=== PATIENT | male | born 1960 | race Caucasian/White ===

== ENCOUNTER 2017-01-27 04:45 | Inpatient (IN) | payer BC, OTHER ==
[2017-01-27] MEDS ORDERED: morphine CARPU-JECT 2 MG/1 ML DISP.SYRIN IVPUSH ONE (06:22)
[2017-01-27] MEDS ORDERED: SODIUM CHLORIDE 1,000 ML IV STA ×2 (06:22→10:02)
[2017-01-27 06:34] VITALS: BMI 33.0
--- NOTE | 2017-01-27 06:41 | PDOC ---
History of Present Illness - General Stated Complaint: ABD PAIN Time Seen by Provider: 01/27/17 06:07 History Source: Patient Exam Limitations: No Limitations - History of Present Illness Travel History: No Initial Comments: 01/27/17 06:28 56yo Male patient presents to ED c/o mid abdominal pain. Patient states he developed an abdominal hernia a couple months ago. Patient had abdominal surgery 9 yrs ago for perforated bowel. He states 3 days ago symptoms worsened, while driving home from work this morning he developed severe pain 03/21. Patient denies n/v/d, fever, rectal bleeding, dysuria, hematuria, or any other complaints at this time. PCP- None. Timing/Duration: reports: getting worse Quality: reports: moderate Abdominal Pain Onset Location: reports: periumbilical Pain Radiation: reports: back Activities at Onset: reports: exertion Treatment Prior to Arrive: worse with: analgesics, antacids, cold pack, heat, laxative, enema, other Aggravating Factors: worse with: None, Defecation, Eating, Emotional upset, Exertion, [place], Movement, Voiding, Change in position ED Treatment Course - RADIOLOGY Radiology Studies Ordered: Category Date Time Status ABDOMEN & PELVIS CT W/O CONTR [CT] Stat CT Scan 01/27/17 06:23 Ordered
[2017-01-27] MEDS ORDERED: morphine CARPU-JECT 2 MG/1 ML DISP.SYRIN ONE (07:22)
--- NOTE | 2017-01-27 08:03 | PDOC ---
*Physical Exam - Vital Signs Last Vital Signs Temp Pulse Resp BP Pulse Ox 97.6 F 79 14 156/89 99 01/27/17 06:32 01/27/17 06:32 01/27/17 06:32 01/27/17 06:32 01/27/17 06:32 - Physical Exam General Appearance: Yes: Appropriately Dressed. No: Apparent Distress HEENT: positive: Normal Voice Neck: positive: Supple Respiratory/Chest: negative: Respiratory Distress Gastrointestinal/Abdominal: positive: Normal Bowel Sounds, Tender (RUQ w/ ? small reducible hernia to R mid abd), Soft. negative: Distended, Guarding, Rebound Musculoskeletal: negative: CVA Tenderness Integumentary: positive: Dry, Warm Neurologic: positive: Fully Oriented, Alert, Normal Mood/Affect ED Treatment Course - LABORATORY CBC & Chemistry Diagram: 01/27/17 07:55 01/27/17 07:55 - Medications Given in the ED: ED Medications Discontinued Medications Generic Name Dose Route Start Last Admin Trade Name Freq PRN Reason Stop Dose Admin Sodium Chloride 1,000 mls @ 1,000 mls/hr 01/27/17 06:22 01/27/17 07:25 Normal Saline - IV 01/27/17 07:21 1,000 mls/hr ASDIR STA Administration Morphine Sulfate 2 mg 01/27/17 06:22 01/27/17 07:25 Morphine Injection - IVPUSH 01/27/17 06:23 2 mg ONCE ONE Administration Medical Decision Making - Medical Decision Making 01/27/17 08:01 Received signout at 7am Patient is a 56-year-old male status post surgery for perforated bowel remotely , ?ventral hernia to RUQ, p/w RUQ pain x several days. No associated symptoms. As per prior team, patient appears to have a ? reducible hernia to R mid abd. Pain presently controlled with meds. Labs and CT pending 01/27/17 08:09 01/27/17 08:[address] as neg for s/o obstruction w/ multiple fat containing hernias , including R paramedian epigastric hernia. Distended gallbladder with haziness to pericholecystic fat is seen, consider cholecystitis. Labs still pending. Will get ultrasound at this point to confirm cecy. Pt requesting pain meds at this time 01/27/17 08:23 01/27/17 09:52 Acute cecy on US w/ multiple gallstones and over distended GB w/ wall edema, no pericholecysticc fluid. Wbc of 15, LFTs wnl. Will order pre-op labs, abx and c/w surgery 01/27/17 09:57 01/27/17 10:31 01/27/17 10:43 Case d/w surgery and pt admitted to hospitalist *DC/Admit/Observation/Transfer Diagnosis at time of Disposition: Acute cholecystitis - Discharge Dispostion Condition at time of disposition: Fair Admit: Yes
[2017-01-27] MEDS ORDERED: ONDANSETRON 4 MG/2 ML VIAL IVPUSH ONE (08:23)
[2017-01-27] MEDS ORDERED: morphine CARPU-JECT 4 MG/1 ML DISP.SYRIN IVPUSH ONE (08:23)
[2017-01-27 08:28] LABS: BASOPHIL 0.5 % (0-2.0); EOSINOPHIL 0.3 % (0-4.5); MCH 30.9 pg (25.7-33.7); MCHC 34.5 g/dl (32.0-35.9); MEAN CELL VOLUME 89.6 fl (80-96); MEAN PLT VOLUME 8.7 fl (7.5-11.1); NEUTROPHILS 82.1 % (42.8-82.8); PLATELET COUNT 271 K/MM3 (134-434); RDW 12.5 % (11.9-15.9); WHITE BLOOD COUNT 15.6 K/mm3 (4.0-10.0)
[2017-01-27] MEDS ORDERED: morphine CARPU-JECT 4 MG/1 ML DISP.SYRIN ONE (08:29)
[2017-01-27] MEDS ORDERED: ONDANSETRON 4 MG/2 ML VIAL ONE ×2 (08:29→15:17)
[2017-01-27 08:38] LABS: AMYLASE 37 U/L (25-115); ANION GAP 7 (8-16); CALCIUM 9.5 mg/dL (8.5-10.1); CO2 31 mmol/L (21-32); GLUCOSE,RANDOM 137 mg/dL (74-106); SGOT/AST 20 U/L (15-37); SGPT/ALT 30 U/L (12-78)
[2017-01-27 08:40] LABS: ALK PHOS 89 U/L (45-117); BILIRUBIN,TOTAL 0.6 mg/dL (0.2-1.0); CREATININE 0.7 mg/dL (0.7-1.3); TOT PROT 7.8 g/dl (6.4-8.2)
[2017-01-27] MEDS ORDERED: HYDROmorphone HCL CARPU-JECT 2 MG/1 ML DISP.SYRIN IVPUSH ONE (09:18)
[2017-01-27] MEDS ORDERED: HYDROmorphone HCL CARPU-JECT 2 MG/1 ML DISP.SYRIN ONE ×3 (09:26→12:58)
[2017-01-27] MEDS ORDERED: CEFAZOLIN 1 GM in DEXTROSE 5%-WATER - 50 ML IVPB ONE (09:57)
[2017-01-27] MEDS ORDERED: HYDROmorphone HCL CARPU-JECT 2 MG/1 ML DISP.SYRIN IVPB ONE ×2 (10:02→12:52)
[2017-01-27 10:08] LABS: URINE APPEARANCE CLEAR; URINE BILIRUBIN NEGATIVE (NEGATIVE); URINE BLOOD NEGATIVE (NEGATIVE); URINE COLOR LTYELLOW; URINE GLUCOSE (UA) NEGATIVE (NEGATIVE); URINE KETONE NEGATIVE (NEGATIVE); URINE LEUK ESTERASE NEGATIVE (NEGATIVE); URINE NITRITE NEGATIVE (NEGATIVE); URINE PROTEIN NEGATIVE (NEGATIVE); URINE UROBILINOGEN 2.0 E.U/dl E.U./dl (0.2-1.0)
[2017-01-27] MEDS ORDERED: CEFAZOLIN (PRE-DOCKED) 50 ML IVPB ONE (10:38)
[2017-01-27] MEDS ORDERED: HYDROmorphone HCL CARPU-JECT 1 MG/1 ML DISP.SYRIN IVPUSH PRN (11:12)
[2017-01-27] MEDS ORDERED: DEXTROSE 5%-0.45% SALINE 1,000 ML IV SCH (11:15)
[2017-01-27 11:53] LABS: MAGNESIUM 2.1 mg/dL (1.8-2.4)
[2017-01-27 11:54] LABS: INR 1.15 (0.82-1.09); PROTHROMBIN TIME (PATIENT) 12.7 SEC (9.98-11.88)
[2017-01-27 11:54] LABS: TROPONIN I < 0.02 ng/ml (0.00-0.05)
--- NOTE | 2017-01-27 13:49 | HP ---
CHIEF COMPLAINT: abd pain PCP: does not have one HISTORY OF PRESENT ILLNESS: 56yo Male patient presents to ED c/o mid abdominal pain. Patient states he developed an abdominal hernia a couple months ago. Patient had abdominal surgery 9 yrs ago for perforated bowel. He states 3 days ago symptoms worsened, while driving home from work this morning he developed severe pain 8/10. Patient denies n/v/d, fever, rectal bleeding, dysuria, hematuria, or any other complaints at this time. ER course was notable for: (1) cholecystsis findings on CT and US, treat with ABT (2) surgical consult with NPO status after MN (3) Recent Travel: none PAST MEDICAL HISTORY: denies PAST SURGICAL HISTORY: denies Social History: Smoking: Alcohol: Drugs: lives with and children Family History: Allergies No Known Allergies Allergy (Verified 01/27/17 06:32) HOME MEDICATIONS: Home Medications Medication Instructions Recorded NK [No Known Home Medication] 01/27/17 REVIEW OF SYSTEMS CONSTITUTIONAL: Absent: fever, chills, diaphoresis, generalized weakness, malaise, loss of appetite, weight change HEENT: Absent: rhinorrhea, nasal congestion, throat pain, throat swelling, difficulty swallowing, mouth swelling, ear pain, eye pain, visual changes CARDIOVASCULAR: Absent: chest pain, syncope, palpitations, irregular heart rate, lightheadedness , peripheral edema RESPIRATORY: Absent: cough, shortness of breath, dyspnea with exertion, orthopnea, wheezing, stridor, hemoptysis GASTROINTESTINAL: Absent: (+) abdominal pain, abdominal distension,(+) nausea, vomiting, diarrhea , constipation, melena, hematochezia GENITOURINARY: Absent: dysuria, frequency, urgency, hesitancy, hematuria, flank pain, genital pain MUSCULOSKELETAL: Absent: myalgia, arthralgia, joint swelling, back pain, neck pain SKIN: Absent: rash, itching, pallor HEMATOLOGIC/IMMUNOLOGIC: Absent: easy bleeding, easy bruising, lymphadenopathy, frequent infections ENDOCRINE: Absent: unexplained weight gain, unexplained weight loss, heat intolerance, cold intolerance NEUROLOGIC: Absent: headache, focal weakness or paresthesias, dizziness, unsteady gait, seizure, mental status changes, bladder or bowel incontinence PSYCHIATRIC: Absent: anxiety, depression, suicidal or homicidal ideation, hallucinations. PHYSICAL EXAMINATION Vital Signs - 24 hr 01/27/17 12:30 Temperature 98.0 F Pulse Rate [ 76 Right] Respiratory 18 Rate Blood Pressure 139/68 [Right Arm] O2 Sat by Pulse 97 Oximetry (%) GENERAL: Awake, alert, and fully oriented, in no acute distress. HEAD: Normal with no signs of trauma. EYES: Pupils equal, round and reactive to light, extraocular movements intact, sclera anicteric, conjunctiva clear. No lid lag. EARS, NOSE, THROAT: Ears normal, nares patent, oropharynx clear without exudates. Moist mucous membranes. NECK: Normal range of motion, supple without lymphadenopathy, JVD, or masses. LUNGS: Breath sounds equal, clear to auscultation bilaterally. No wheezes, and no crackles. No accessory muscle use. HEART: Regular rate and rhythm, normal S1 and S2 without murmur, rub or gallop. ABDOMEN: Soft, (+) mid to right side abdominal tender, not distended, normoactive bowel sounds, no guarding, no rebound, no masses. No hepatomegaly or splenomegaly. MUSCULOSKELETAL: Normal range of motion at all joints. No bony deformities or tenderness. No CVA tenderness. UPPER EXTREMITIES: 2+ pulses, warm, well-perfused. No cyanosis. No clubbing. No peripheral edema. LOWER EXTREMITIES: 2+ pulses, warm, well-perfused. No calf tenderness. No peripheral edema. NEUROLOGICAL: Cranial nerves II-XII intact. Normal speech. Normal gait. PSYCHIATRIC: Cooperative. Good eye contact. Appropriate mood and affect. SKIN: Warm, dry, normal turgor, no rashes or lesions noted, normal capillary refill. Laboratory Results - last 24 hr 01/27/17 01/27/17 01/27/17 11:14 11:27 11:27 INR 1.15 H PTT (Actin FS) Lipase 51 L Blood Type O POSITIVE Antibody Screen Negative 01/27/17 11:50 INR PTT (Actin FS) 33.3 Lipase Blood Type Antibody Screen ASSESSMENT/PLAN: This 56 yr old male with c/o right upper quad pain with a finding dx of cholecystitis 1. Cholecystitis -ABT -pain management -IVF -consult with Dr. Jw shelby prn -NPO after MN Visit type - Emergency Visit Emergency Visit: Yes ED Registration Date: 01/27/17 Care time: The patient presented to the Emergency Department on the above date and was hospitalized for further evaluation of their emergent condition. - New Patient This patient is new to me today: Yes Date on this admission: 01/27/17 - Critical Care Critical Care patient: No
[2017-01-27] MEDS: ONDANSETRON 4 MG/2 ML VIAL IVPB PRN (15:18)
[2017-01-27] MEDS: HEPARIN NA (PORCINE) 5,000 UNITS/ML 1ML VIAL SQ SCH ×2 (16:00→21:52)
[2017-01-27] MEDS ORDERED: HYDROmorphone HCL CARPU-JECT 1 MG/1 ML DISP.SYRIN ONE ×2 (16:15→21:33)
[2017-01-27] MEDS ORDERED: PIPERACILLIN/TAZOB 3.375 GM/50 ML PRE-DOCKED IVPB SCH (18:00)
[2017-01-27] MEDS ORDERED: CEFTRIAXONE 2 GM in DEXTROSE 5%-WATER - 100 ML IVPB SCH (19:00)
[2017-01-27] MEDS ORDERED: cefTRIAXone 2 GM/100 ML BAG (PRE-DOCKED) IVPB SCH (19:15)
[2017-01-27] MEDS ORDERED: HYDROmorphone HCL CARPU-JECT 2 MG/1 ML DISP.SYRIN IVPB PRN (19:24)
[2017-01-27] MEDS ORDERED: HEPARIN NA (PORCINE) 5,000 UNITS/ML 1ML VIAL ONE (21:34)
[2017-01-27] MEDS ORDERED: METRONIDAZOLE 500 MG PREMIXED 100 ML IVPB ONE (21:34)
[2017-01-27] MEDS ORDERED: CEFTRIAXONE 100 ML IVPB ONE (21:34)
[2017-01-27] MEDS: HYDROmorphone HCL CARPU-JECT 1 MG/1 ML DISP.SYRIN IVPUSH PRN (21:52)
[2017-01-27] MEDS: METRONIDAZOLE 500 MG PREMIXED 100 ML IVPB SCH (21:52)
--- NOTE | 2017-01-27 22:03 | CONSULT ---
- Consultation REQUESTING PROVIDER: DON Rangel CONSULT REQUEST: We have been asked to surgically evaluate this patient for ( specify). PCP:Martin Loja HISTORY OF PRESENT ILLNESS:56 y/o male presented to the ER w/abdominal pain and nausea and vomiting; he has a known incisional hernia from previous surgery( blunt trauma to the abdomen w/bowel resection 9 years ago); w/u in the ER revealed acute cholecystitis; he denies dark urine; light stools; no other GI c/ o. PMHx: none PSHx: as above Home Medications Medication Instructions Recorded NK [No Known Home Medication] 01/27/17 Allergies Allergy/AdvReac Type Severity Reaction Status Date / Time No Known Allergies Allergy Verified 01/27/17 06:32 REVIEW OF SYSTEMS: CONSTITUTIONAL: Present: fever, chills, diaphoresis, generalized weakness, malaise, loss of appetite. CARDIOVASCULAR: Absent: chest pain, syncope, palpitations, irregular heart rate, lightheadedness , peripheral edema RESPIRATORY: Absent: cough, shortness of breath, dyspnea with exertion, wheezing, stridor, hemoptysis GASTROINTESTINAL: Present: abdominal pain, abdominal distension, nausea, vomiting, GENITOURINARY: Absent: dysuria, frequency, urgency, hesitancy, hematuria, flank pain, genital pain MUSCULOSKELETAL: Absent: myalgia, arthralgia, joint swelling, back pain, neck pain SKIN: Absent: rash, itching, pallor HEMATOLOGIC/IMMUNOLOGIC: Absent: easy bleeding, easy bruising, lymphadenopathy NEUROLOGIC: Absent: headache, focal weakness, paresthesias, dizziness, unsteady gait, seizure, mental status changes, bladder or bowel incontinence PSYCHIATRIC: Absent: anxiety, depression, suicidal or homicidal ideation, hallucinations. PHYSICAL EXAM: GENERAL: Awake, alert, and fully oriented, in no acute distress. HEAD: Normal with no signs of trauma. EYES: PERRL, sclera anicteric, conjunctiva clear. NECK: Normal ROM, supple without lymphadenopathy, JVD, or masses. LUNGS: Clear to auscultation bilat anteriorly. No wheezes, and no crackles. No accessory muscle use. HEART: Regular rate and rhythm. No murmurs ABDOMEN: Mildline incision scar w/ ?? incisional hernia that is reducible;Soft, tender RUQ; not distended, normoactive bowel sounds, no guarding, no rebound, no masses. No organomegaly. MUSCULOSKELETAL: Normal ROM at all joints. No bony deformities or tenderness. No CVA tenderness. UPPER EXTREMITIES: 2+ pulses, warm, well-perfused. No cyanosis. Cap refill <2 seconds. No peripheral edema. LOWER EXTREMITIES: 2+ pulses, warm, well-perfused. No calf tenderness. No peripheral edema. NEUROLOGICAL: Normal speech, gait not observed. PSYCH: Cooperative. Good eye contact. Appropriate mood and affect. SKIN: Warm, dry, normal turgor, no rashes or lesions noted. Vital Signs Temperature 98.5 F 01/27/17 19:22 Pulse Rate 89 01/27/17 19:22 Respiratory Rate 18 01/27/17 19:22 Blood Pressure 149/70 01/27/17 19:22 O2 Sat by Pulse Oximetry (%) 97 01/27/17 19:22 Lab Results WBC 15.6 K/mm3 (4.0-10.0) H 01/27/17 07:55 RBC 4.36 M/mm3 (4.00-5.60) 01/27/17 07:55 Hgb 13.5 GM/dL (11.7-16.9) 01/27/17 07:55 Hct 39.0 % (35.4-49) 01/27/17 07:55 MCV 89.6 fl (80-96) 01/27/17 07:55 MCHC 34.5 g/dl (32.0-35.9) 01/27/17 07:55 RDW 12.5 % (11.9-15.9) 01/27/17 07:55 Plt Count 271 K/MM3 (134-434) 01/27/17 07:55 Sodium 138 mmol/L (136-145) 01/27/17 07:55 Potassium 4.3 mmol/L (3.5-5.1) 01/27/17 07:55 Chloride 100 mmol/L (98-107) 01/27/17 07:55 Carbon Dioxide 31 mmol/L (21-32) 01/27/17 07:55 Anion Gap 7 (8-16) L 01/27/17 07:55 BUN 21 mg/dL (7-18) H 01/27/17 07:55 Creatinine 0.7 mg/dL (0.7-1.3) 01/27/17 07:55 Random Glucose 137 mg/dL (74-106) H 01/27/17 07:55 Calcium 9.5 mg/dL (8.5-10.1) 01/27/17 07:55 Blood Type O POSITIVE 01/27/17 11:27 Antibody Screen Negative 01/27/17 11:27 INR 1.15 (0.82-1.09) H 01/27/17 11:27 CT/US reviewed; ;abs reviewed IMP: acute cholecystitis/cholelithiasis; h/o previous abdominal surgery due to blunt trauma and incisional hernias. PLAN: admit/npo/ivf/ivabs/lap cecy possible open; d/w pt.r/b/a/'s to surgery; he wishes to proceed; succes for lap cecy based on findings at beginning of surgery; hernia(s) willl need to be addressed at a later date. Nabil Escalera MD FACS Visit type - Case Type Case Type: ED Admission - Emergency Emergency Visit: Yes ED Registration Date: 01/27/17 Care time: The patient presented to the Emergency Department on the above date and was hospitalized for further evaluation of their emergent condition. - New patient This patient is new to me today: Yes Date on this admission: 01/27/17 - Critical Care Critical Care patient: No
[2017-01-28] MEDS ORDERED: HYDROmorphone HCL CARPU-JECT 1 MG/1 ML DISP.SYRIN ONE ×2 (01:45→06:16)
[2017-01-28] MEDS ORDERED: METRONIDAZOLE 500 MG PREMIXED 100 ML IVPB ONE ×2 (01:45→16:57)
[2017-01-28] MEDS: HYDROmorphone HCL CARPU-JECT 1 MG/1 ML DISP.SYRIN IVPUSH PRN ×3 (01:55→11:37)
[2017-01-28] MEDS: METRONIDAZOLE 500 MG PREMIXED 100 ML IVPB SCH ×3 (02:11→22:17)
[2017-01-28] MEDS: HEPARIN NA (PORCINE) 5,000 UNITS/ML 1ML VIAL SQ SCH (06:15)
[2017-01-28 07:15] LABS: MCH 30.4 pg (25.7-33.7); MEAN CELL VOLUME 89.2 fl (80-96); MEAN PLT VOLUME 8.6 fl (7.5-11.1); PLATELET COUNT 284 K/MM3 (134-434); RDW 12.9 % (11.9-15.9)
[2017-01-28 07:39] LABS: ALBUMIN 3.7 g/dl (3.4-5.0); ANION GAP 12 (8-16); CALCIUM 9.3 mg/dL (8.5-10.1); CO2 29 mmol/L (21-32); GLUCOSE,RANDOM 157 mg/dL (74-106); MAGNESIUM 1.8 mg/dL (1.8-2.4)
[2017-01-28 07:42] LABS: WHITE BLOOD COUNT 32.6 K/mm3 (4.0-10.0)
[2017-01-28 07:44] LABS: ALK PHOS 78 U/L (45-117); BILIRUBIN,TOTAL 1.6 mg/dL (0.2-1.0); CREATININE 0.7 mg/dL (0.7-1.3); PHOSPHOROUS 2.6 mg/dL (2.5-4.9); SGOT/AST 18 U/L (15-37); SGPT/ALT 24 U/L (12-78); TOT PROT 7.1 g/dl (6.4-8.2)
--- NOTE | 2017-01-28 09:24 | PN ---
Progress Note (short form) - Note Progress Note: ID Consult dictated 56 yr old male admitted with RUQ abdominal pain, N/V x1. Sonogram shows overdistended GB with multiple stones, GB wall edema, 1.2 cm stone at GB neck. WBC 32K IMP Acute cholecystitis Possible biliary sepsis Marked leukocytosis PLAN Blood c/s Empiric zosyn/ flagyl Cholecystectomy
[2017-01-28] MEDS ORDERED: PIPERACILLIN/TAZOB 4.5 GM 100 ML IVPB SCH (10:00)
[2017-01-28] MEDS ORDERED: METRONIDAZOLE 500 MG PREMIXED 500 MG/100 ML MG IVPB ONE ×2 (10:00→11:30)
[2017-01-28] MEDS ORDERED: SODIUM CHLORIDE 1,000 ML IV SCH (10:15)
[2017-01-28] MEDS ORDERED: HYDROmorphone HCL CARPU-JECT 2 MG/1 ML DISP.SYRIN ONE ×2 (10:18→18:03)
[2017-01-28] MEDS ORDERED: PIPERACILLIN/TAZOB 4.5 GM/100 ML PRE-DOCKED IVPB ONE (11:30)
[2017-01-28 11:42] LABS: PLATELET COMMENT2 NO CLOTTING DETECTED; PLATELET ESTIMATE ADEQUATE (NORMAL)
[2017-01-28] MEDS ORDERED: FAMOTIDINE 20 MG PREMIXED IVPB IVPB ONE (12:00)
[2017-01-28] MEDS ORDERED: FAMOTIDINE 20 MG/50 ML IVPB 50 ML IVPB ONE ×3 (12:03→18:20)
[2017-01-28] MEDS ORDERED: MIDAZOLAM HCL 2 MG/2 ML SINGLE DOSE VIAL ONE (13:50)
[2017-01-28] MEDS ORDERED: ePHEDrine SULFATE 50 MG/1 ML AMPULE ONE (13:52)
[2017-01-28] MEDS ORDERED: DEXAMETHASONE SOD PHOSPHATE 4 MG/1 ML VIAL ONE (13:52)
[2017-01-28] MEDS ORDERED: ceFAZolin SODIUM 1 GM VIAL ONE (13:52)
[2017-01-28] MEDS ORDERED: KETOROLAC TROMETHAMINE 30 MG/1 ML VIAL ONE (13:52)
[2017-01-28] MEDS ORDERED: ONDANSETRON 4 MG/2 ML VIAL ONE ×3 (13:52→17:55)
[2017-01-28] MEDS ORDERED: ROCURONIUM BROMIDE 50 MG/5 ML VIAL ONE ×3 (13:52→16:52)
[2017-01-28] MEDS ORDERED: BUPIVACAINE HCL/PF 0.5% (5MG/ML) 10 ML VIAL ONE (14:48)
[2017-01-28] MEDS ORDERED: ceFAZolin SODIUM 1 GM VIAL IVPB ONE (14:50)
[2017-01-28] MEDS ORDERED: ACETAMINOPHEN INJECTION 100 ML IVPB ONE (15:41)
[2017-01-28] MEDS ORDERED: ONDANSETRON 4 MG/2 ML VIAL IVPUSH PRN (15:54)
[2017-01-28] MEDS ORDERED: HYDROmorphone HCL CARPU-JECT 1 MG/1 ML DISP.SYRIN IVPUSH PRN (15:54)
[2017-01-28] MEDS ORDERED: LACTATED RINGERS SOLUTION 1,000 ML IV SCH ×2 (16:00→18:20)
[2017-01-28] MEDS ORDERED: HYDROmorphone *PCA* 10MG/50ML DISP.SYRIN PCA SCH ×2 (16:00→18:20)
[2017-01-28] MEDS ORDERED: HYDROmorphone HCL CARPU-JECT 1 MG/1 ML DISP.SYRIN IVPB PRN ×2 (16:20→18:20)
[2017-01-28] MEDS ORDERED: NEOSTIGMINE METHYLSULFATE 0.5 MG/ML - 10 ML MDV ONE (17:21)
[2017-01-28] MEDS ORDERED: GLYCOPYRROLATE 0.2 MG/1 ML VIAL ONE ×2 (17:22→17:35)
[2017-01-28] MEDS ORDERED: HYDROmorphone HCL/PF 1 MG/ML VIAL (FOR PYXIS CHARGING ONLY) ONE (17:24)
--- NOTE | 2017-01-28 17:42 | OP ---
Operative Note - Note: Operative Date: 01/28/17 Pre-Operative Diagnosis: Acute cholecystitis/cholelithiasis Operation: Laparoscopic converted to open cholecystectomy Findings: Upon entering peritoneal cavity, large and small bowel plastered to abdominal wall. Deemed unsafe to proceed laproscopically Post-Operative Diagnosis: Same as Pre-op Surgeon: Nabil Escalera Block Sealer: Heraclio Orta Anesthesiologist/CVT RN: Jerry Monae Anesthesia: General Specimens Removed: Gall bladder Estimated Blood Loss (mls): 150 Drains & Tubes with Location: PARKER (RUQ) Fluid Volume Replaced (mls): 1,800 Operative Report Dictated: Yes
--- NOTE | 2017-01-28 17:43 | SURG ---
Surgery Retail Sales Specialist Note Retail Sales Specialist: Heraclio Orta PA-C Date of Service: 01/28/17 Diagnosis: acute cholecystitis/cholelithiasis Procedure: Laparoscopic converted to open cholecystectomy I was present for the entirety of the operative procedure. For further detail, please refer to operative report. Visit type - Case Type Case Type: ED Admission - Emergency Emergency Visit: Yes ED Registration Date: 01/27/17 Care time: The patient presented to the Emergency Department on the above date and was hospitalized for further evaluation of their emergent condition. - New patient This patient is new to me today: Yes Date on this admission: 01/28/17
[2017-01-28] MEDS: ONDANSETRON 4 MG/2 ML VIAL IVPB PRN (17:58)
[2017-01-28] MEDS ORDERED: HYDROmorphone *PCA* 10MG/50ML DISP.SYRIN PCA ONE (18:03)
--- NOTE | 2017-01-28 18:13 | PN ---
Physical Exam: SUBJECTIVE: Patient seen and examined after surgery. He is nauseated and in pain. OBJECTIVE: Vital Signs Period Temp Pulse Resp BP Sys/[place]y Pulse Ox Last 24 Hr 98.3 F-99.9 F 89-120 18-18 133-155/62-86 97-97 PE Neuro: alert, awake, cn 2-12intact HEENT: NG tube, bilious output Pulm: CTA anteriorly CV: s1 s2 rrr no mrg Abd: PARKER drain serosanguinous output distended, RUQ dressing, soft + tenderness Ext: warm, no le edema Laboratory Results - last 24 hr 01/28/17 01/28/17 06:14 06:14 WBC 32.6 H* D RBC 4.30 Hgb 13.0 Hct 38.4 MCV 89.2 MCHC 34.0 RDW 12.9 Plt Count 284 MPV 8.6 Neutrophils % 88.0 H Lymphocytes % 2.0 L D Monocytes % 4.0 Band Neutrophils 6.0 Platelet Estimate Adequate Platelet Comment No clotting detected Sodium 134 L Potassium 3.5 Chloride 93 L Carbon Dioxide 29 Anion Gap 12 BUN 9 D Creatinine 0.7 Creat Clearance w eGFR > 60 Random Glucose 157 H Calcium 9.3 Phosphorus 2.6 Magnesium 1.8 Total Bilirubin 1.6 H D AST 18 ALT 24 Alkaline Phosphatase 78 Total Protein 7.1 Albumin 3.7 Active Medications Generic Name Dose Route Start Last Admin Trade Name Freq PRN Reason Stop Dose Admin Hydromorphone HCl 0.5 mg 01/28/17 15:54 Dilaudid Injection - IVPUSH 01/31/17 15:55 [id number] PRN PAIN Hydromorphone HCl 0 mg 01/28/17 16:00 Dilaudid Underwriter Solicitation Director - INSTRUCTIONAL SUPPORT SPECIALIST 01/31/17 15:55 INSTRUCTIONAL SUPPORT SPECIALIST ALINE Protocol Hydromorphone HCl 1 mg 01/28/17 16:20 Dilaudid Injection - IVPB Q4H PRN PAIN Metronidazole 100 mls @ 100 mls/hr 01/27/17 19:15 01/28/17 02:11 Flagyl 500mg Premixed Ivpb - IVPB 100 mls/hr Q6H-IV ALINE Administration Piperacillin Sod/Tazobactam Sod 100 mls @ 200 mls/hr 01/28/17 10:00 Zosyn 4.5gm Ivpb (Pre-Docked) IVPB Q8H-IV ALINE Protocol Sodium Chloride 1,000 mls @ 100 mls/hr 01/28/17 10:15 Normal Saline - IV ASDIR ALINE Lactated Ringer's 1,000 mls @ 125 mls/hr 01/28/17 16:00 Lactated Ringers Solution IV ASDIR ALINE Ondansetron HCl 4 mg 01/27/17 11:12 01/27/17 15:18 Zofran Injection IVPB 4 mg Q6H PRN Administration NAUSEA Ondansetron HCl 4 mg 01/28/17 15:54 Zofran Injection IVPUSH 01/28/17 21:55 Q6H PRN NAUSEA AND/OR VOMITING Assessment: 56 year old male past surgical hx recent incision hernia from previous surgery (blunt trauma to the abdomen w/bowel resection 9 years ago); admitted with abdominal pain and nausea and vomiting. Plan: 1. Acute cholecystitis - Open cholecystectomy today - Continue zosyn - Continue flagyl - Blood cultures pending - NPO - Continue LR 125cc/hr - Zofran PRN - Surgery seeing Visit type - Emergency Visit Emergency Visit: Yes ED Registration Date: 01/27/17 Care time: The patient presented to the Emergency Department on the above date and was hospitalized for further evaluation of their emergent condition. - New Patient This patient is new to me today: Yes Date on this admission: 01/28/17 - Critical Care Critical Care patient: No
[2017-01-28] MEDS ORDERED: ONDANSETRON 4 MG/2 ML VIAL IVPB PRN (18:20)
[2017-01-28] MEDS: SODIUM CHLORIDE 1,000 ML IV SCH (19:50)
--- NOTE | 2017-01-28 22:51 | CONS ---
DATE OF CONSULTATION: DATE OF DICTATION: 01/28/2017 INFECTIOUS DISEASE CONSULTATION HISTORY OF PRESENT ILLNESS: The patient is a 56-year-old male evaluated for possible biliary sepsis. He was admitted to the hospital with onset of mid abdominal pain associated with 1 episode of nausea and vomiting. Patient states he developed the pain in the cigar bander hours. He presented to the emergency room, where he developed an episode of nausea and vomiting. He was noted to have an elevated white blood cell count. A sonogram was performed and showed an overdistended gallbladder with multiple stones, gallbladder wall edema, and a 1.2-cm calculus at the gallbladder neck. He was seen in consultation by surgery and is scheduled for a laparoscopic cholecystectomy. Patient complains of right upper quadrant pain. He had some nausea, 1 episode of vomiting. He denies any diarrhea. He denies any associated fever or chills. His course has now been complicated by white blood cell count of 32,000. PAST MEDICAL HISTORY: Positive for abdominal blunt trauma approximately 9 to 10 years ago, resulting in perforated bowel requiring surgery and subsequent development of a ventral hernia. ALLERGIES: No known allergies. MEDICATION: Include ceftriaxone, Flagyl, Zofran, Dilaudid. SOCIAL HISTORY: He lives at home with his significant other. He is a nonsmoker, nondrinker. SYSTEMS REVIEW: Neurologic: No loss of consciousness, seizure activity, or focal weakness. Cardiac: Negative chest pain or palpitations. Respiratory: Negative cough or sputum production. Gastrointestinal: As per HPI. Genitourinary: Negative for urinary tract infection. LABORATORY DATA: White count 32.6, hematocrit 38.4, platelet count 284, BUN 9, creatinine 0.7. Urine: leukocyte esterase negative. PHYSICAL EXAMINATION: General: He is awake and alert. He is in moderate distress secondary to right upper quadrant abdominal pain. Vital signs: Temperature 99.0, blood pressure 133/86, pulse 112 regular, respirations 18 per minute. HEENT: Sclerae anicteric. Cardiovascular: Heart sounds tachycardic. S1, S2. Respiratory: Lungs clear bilaterally. Abdomen: Soft. Positive right upper quadrant tenderness to palpation. Positive Whitt sign. No mass, rebound, or rigidity. Extremities: Negative for edema. IMPRESSION: 1. Acute cholecystitis. 2. Possible biliary sepsis. 3. Marked leukocytosis secondary to biliary tract source. Obtain blood cultures, empiric antibiotic coverage, biliary tract pathogens with Zosyn and Flagyl. Patient is to undergo laparoscopic cholecystectomy. Discussed with patient's family members present at the time of examination. Thank you for the kind referral. TON JORDAN M.D. [id number]
[2017-01-29] MEDS: PIPERACILLIN/TAZOB 4.5 GM 100 ML IVPB SCH ×3 (01:39→18:08)
[2017-01-29] MEDS: METRONIDAZOLE 500 MG PREMIXED 100 ML IVPB SCH ×4 (03:53→21:24)
[2017-01-29] MEDS: SODIUM CHLORIDE 1,000 ML IV SCH ×2 (06:04→16:46)
[2017-01-29 07:14] LABS: BASOPHIL 0.1 % (0-2.0); MCH 30.3 pg (25.7-33.7); MCHC 33.8 g/dl (32.0-35.9); MEAN CELL VOLUME 89.6 fl (80-96); MEAN PLT VOLUME 7.9 fl (7.5-11.1); NEUTROPHILS 86.9 % (42.8-82.8); PLATELET COUNT 234 K/MM3 (134-434); RDW 12.9 % (11.9-15.9); WHITE BLOOD COUNT 23.5 K/mm3 (4.0-10.0)
[2017-01-29 07:38] LABS: ALBUMIN 2.5 g/dl (3.4-5.0); ANION GAP 6 (8-16); BILIRUBIN,DIRECT 0.2 mg/dL (0.0-0.2); CALCIUM 8.3 mg/dL (8.5-10.1); CO2 31 mmol/L (21-32); CREATININE 0.6 mg/dL (0.7-1.3); GLUCOSE,RANDOM 134 mg/dL (74-106); SGOT/AST 54 U/L (15-37); SGPT/ALT 57 U/L (12-78)
[2017-01-29 07:40] LABS: ALK PHOS 56 U/L (45-117); TOT PROT 5.4 g/dl (6.4-8.2)
--- NOTE | 2017-01-29 08:00 | PN ---
Progress Note (short form) - Note Progress Note: POD #1 Alert. Resting in position of comfort. States he has gotten OOB and ambulated to bathroom. Voiding spontaneously. Using is OCC THERAPY ASST as needed. Remained NPO after surgery. Denies n/v/f/c, CP or SOB. Last Vital Signs Temp Pulse Resp BP Pulse Ox 98.8 F 90 20 141/64 100 01/29/17 05:53 01/29/17 06:10 01/29/17 06:10 01/29/17 06:10 01/28/17 21:00 OUTPUT 01/29/17 01/29/17 01/29/17 01:06 05:56 06:00 PARKER 20 40 NGT 600 TREND 01/28/17 01/29/17 06:14 06:35 WBC 32.6 H* D 23.5 H PE General: nad Abd: obese body habitus. Dressing c/d/i. Birdie intact. No hematoma. PARKER on bulb suction. LE: SCDs b/l. NT <Heraclio Orta P - Last Filed: 01/29/17 08:01> - Note Progress Note: Attending Surgeon POD #1 patient seen and evaluated; concur w/ a/p as outlined above by DON Orta; operative findings d/w the patient as weel as the need for conversion to an open procedure. Nabil Escalera MD FACS <Nabil Escalera N - Last Filed: 01/29/17 09:43> Problem List - Problems (1) Acute cholecystitis Assessment/Plan: POD #1 s/p laparoscopic converted to open cholecystectomy NGT dc'd on rounds Cont OCC THERAPY ASST GI / DVT ppx Cont OOB and ambulate Clear liquid diet ordered Code(s): K81.0 - ACUTE CHOLECYSTITIS <Heraclio Orta P - Last Filed: 01/29/17 08:01>
--- NOTE | 2017-01-29 08:26 | PN ---
Progress Note (short form) - Note Progress Note: Post op day#1.S/p Laproscopy and open cholecystectomy under Ga uneventful.Patient stable and on Dilaudid ALLERGIST/IMMUNOLOGIST PHYSICIAN for pain and c/o pain score of 5-6 /10.Will continue ALLERGIST/IMMUNOLOGIST PHYSICIAN today and will also put patient on Ofirmev PRN.Will F/u.
[2017-01-29] MEDS ORDERED: ACETAMINOPHEN 1000 MG/100 ML VIAL (NON FORMULARY) IVPB ONE (08:45)
[2017-01-29] MEDS: PANTOPRAZOLE SODIUM 100 ML IVPB SCH ×2 (11:00→21:24)
--- NOTE | 2017-01-29 12:53 | PN ---
Physical Exam: SUBJECTIVE: Patient seen and examined. He appears well today, less nauseated, and pale appearing. Tolerating diet, willing to ambulate with later. Events: - NGT pulled by surgery - INVESTMENT SPECIALIST in place OBJECTIVE: Vital Signs Period Temp Pulse Resp BP Sys/Langley Pulse Ox Last 24 Hr 98.8 F-100.0 F 87-106 15-20 118-141/59-84 100-100 PE Neuro: alert, awake, cn 2-12intact Pulm: CTA anteriorly CV: s1 s2 rrr no mrg Abd: PARKER drain serosanguinous output, RUQ dressing, soft + tenderness Ext: warm, no le edema Laboratory Results - last 24 hr 01/29/17 01/29/17 06:35 06:35 WBC 23.5 H RBC 3.34 L D Hgb 10.1 L D Hct 29.9 L D MCV 89.6 MCHC 33.8 RDW 12.9 Plt Count 234 MPV 7.9 Neutrophils % 86.9 H Lymphocytes % 4.5 L D Monocytes % 8.5 D Eosinophils % 0.0 D Basophils % 0.1 Sodium 140 Potassium 3.8 Chloride 103 D Carbon Dioxide 31 Anion Gap 6 L BUN 12 D Creatinine 0.6 L Random Glucose 134 H Calcium 8.3 L Total Bilirubin 1.0 D Direct Bilirubin 0.2 AST 54 H D ALT 57 D Alkaline Phosphatase 56 D Total Protein 5.4 L D Albumin 2.5 L D Active Medications Generic Name Dose Route Start Last Admin Trade Name Freq PRN Reason Stop Dose Admin Hydromorphone HCl 0 mg 01/28/17 18:20 Dilaudid Auto Bumper Mechanic - INVESTMENT SPECIALIST 01/31/17 15:55 INVESTMENT SPECIALIST ALINE Protocol Hydromorphone HCl 1 mg 01/28/17 18:20 Dilaudid Injection - IVPB Q4H PRN PAIN Metronidazole 100 mls @ 100 mls/hr 01/28/17 21:00 01/29/17 09:01 Flagyl 500mg Premixed Ivpb - IVPB 100 mls/hr Q6H-IV ALINE Administration Lactated Ringer's 1,000 mls @ 125 mls/hr 01/28/17 18:20 01/28/17 22:00 Lactated Ringers Solution IV Not Given ASDIR ALINE Sodium Chloride 1,000 mls @ 100 mls/hr 01/28/17 18:20 01/29/17 06:04 Normal Saline - IV 100 mls/hr ASDIR ALINE Administration Piperacillin Sod/Tazobactam Sod 100 mls @ 200 mls/hr 01/29/17 02:00 01/29/17 11 :00 Zosyn 4.5gm Ivpb (Pre-Docked) IVPB 200 mls/hr Q8H-IV ALINE Administration Protocol Pantoprazole Sodium 100 mls @ 200 mls/hr 01/29/17 10:00 01/29/17 11:00 Protonix 40mg Ivpb (Pre-Docked) IVPB 200 mls/hr BID ALINE Administration Ondansetron HCl 4 mg 01/28/17 18:20 Zofran Injection IVPB Q6H PRN NAUSEA Microbiology 01/28/17 11:25 Blood Culture - Preliminary Blood - Peripheral Venous NO GROWTH OBTAINED AFTER 24 HOURS, INCUBATION TO CONTINUE FOR 4 DAYS. 01/28/17 11:23 Blood Culture - Preliminary Blood - Peripheral Venous NO GROWTH OBTAINED AFTER 24 HOURS, INCUBATION TO CONTINUE FOR 4 DAYS. Assessment: 56 year old male past surgical hx recent incision hernia from previous surgery (blunt trauma to the abdomen w/bowel resection 9 years ago); admitted with abdominal pain and nausea and vomiting. Plan: 1. Acute cholecystitis - s/p open cholecystectomy 01/28, found to be gangrenous - Continue zosyn (day 1) - Continue flagyl (day 1) - BC NGTD - Clear liquid diet - NS 83cc/hr - INVESTMENT SPECIALIST pump per anesthesia Visit type - Emergency Visit Emergency Visit: Yes ED Registration Date: 01/27/17 Care time: The patient presented to the Emergency Department on the above date and was hospitalized for further evaluation of their emergent condition. - New Patient This patient is new to me today: No - Critical Care Critical Care patient: No
[2017-01-29] MEDS ORDERED: HYDROmorphone *PCA* 10MG/50ML DISP.SYRIN PCA ONE (14:03)
--- NOTE | 2017-01-29 15:25 | PN ---
Progress Note, Physician History of Present Illness: POD #1 open cholecystectomy C/O incisional discomfort Tolerating liquid diet No N/V No BM / flatus Afebrile WBC improved BC prelim negative - Current Medication List Current Medications: Active Medications Hydromorphone HCl (Dilaudid Paper Core Machine Operator -) 0 mg MANAGER OF CREATIVE SERVICES MANAGER OF CREATIVE SERVICES ALINE PRN Reason: Protocol Stop: 01/31/17 15:55 Last Admin: 01/29/17 14:14 Dose: 10 mg Hydromorphone HCl (Dilaudid Injection -) 1 mg IVPB Q4H PRN PRN Reason: PAIN Metronidazole (Flagyl 500mg Premixed Ivpb -) 100 mls @ 100 mls/hr IVPB Q6H-IV ALINE Last Admin: 01/29/17 09:01 Dose: 100 mls/hr Piperacillin Sod/Tazobactam Sod (Zosyn 4.5gm Ivpb (Pre-Docked)) 100 mls @ 200 mls/hr IVPB Q8H-IV ALINE PRN Reason: Protocol Last Admin: 01/29/17 11:00 Dose: 200 mls/hr Pantoprazole Sodium (Protonix 40mg Ivpb (Pre-Docked)) 100 mls @ 200 mls/hr IVPB BID ALINE Last Admin: 01/29/17 11:00 Dose: 200 mls/hr Sodium Chloride (Normal Saline -) 1,000 mls @ 83 mls/hr IV ASDIR ALINE Ondansetron HCl (Zofran Injection) 4 mg IVPB Q6H PRN PRN Reason: NAUSEA - Objective Vital Signs: Vital Signs Temperature 98.8 F 01/29/17 14:35 Pulse Rate 91 H 01/29/17 14:35 Respiratory Rate 18 01/29/17 14:35 Blood Pressure 112/54 01/29/17 14:35 O2 Sat by Pulse Oximetry (%) 99 01/29/17 09:00 Constitutional: Yes: No Distress Eyes: Yes: Conjunctiva Clear Cardiovascular: Yes: Regular Rate and Rhythm, S1, S2 Gastrointestinal: Yes: Normal Bowel Sounds, Soft, Tenderness Edema: No Labs: CBC, BMP 01/29/17 06:35 01/29/17 06:35 INR, PTT INR 1.15 (0.82-1.09) H 01/27/17 11:27 Assessment/Plan Post op day #1 open cholecystectomy Leukocytosis- improved Await c/s Continue empiric zosyn/ flagyl
[2017-01-30] MEDS: PIPERACILLIN/TAZOB 4.5 GM 100 ML IVPB SCH ×3 (01:56→17:14)
[2017-01-30] MEDS: METRONIDAZOLE 500 MG PREMIXED 100 ML IVPB SCH ×4 (02:37→21:12)
[2017-01-30] MEDS: SODIUM CHLORIDE 1,000 ML IV SCH (05:51)
[2017-01-30 08:05] LABS: BASOPHIL 0.1 % (0-2.0); EOSINOPHIL 0.1 % (0-4.5); MCH 30.4 pg (25.7-33.7); MCHC 33.6 g/dl (32.0-35.9); MEAN CELL VOLUME 90.2 fl (80-96); NEUTROPHILS 82.7 % (42.8-82.8); PLATELET COUNT 258 K/MM3 (134-434); RDW 12.8 % (11.9-15.9); WHITE BLOOD COUNT 17.4 K/mm3 (4.0-10.0)
--- NOTE | 2017-01-30 08:06 | PN ---
Progress Note (short form) - Note Progress Note: Surgery- Dr. Escalera Patient seen and examined. Patient states he is doing well, has some abdominal pain, worse with movement. He is tolerating a clear liquid diet without nausea or vomiting. He is urinating without issue and passing gas. Denies fever, chills. Last Vital Signs Temp Pulse Resp BP Pulse Ox 98 F 82 20 148/79 99 01/30/17 06:33 01/30/17 06:33 01/30/17 06:33 01/30/17 06:33 01/29/17 21:00 Labs pending Drain output 190 ml yesterday per chart Exam: Gen: NAD Abd: soft, mild tenderness with palp RUQ, dressings c/d/i, PARKER drain in place right abdomen with small amount serosanguineous drainage, PARKER drain removed intact without issue on rounds LE: calves soft, nontender <Genesis Blount - Last Filed: 01/30/17 08:43> - Note Progress Note: Attending Surgeon POD # Seen and evaluated; concur w/ a and plan as outlined by the PA. Nabil Escalera MD FACS <Nabil Escalera - Last Filed: 01/30/17 13:27> Problem List - Problems (1) Acute cholecystitis Assessment/Plan: POD#2 s/p Laparoscopic converted to open cholecystectomy Pain control- DC EMBOSSER OPERATOR, oral pain medication Advance to regular diet PARKER drain DC'd on rounds Continue abx per ID Patient discussed with Dr. Escalera Code(s): K81.0 - ACUTE CHOLECYSTITIS <Genesis Blount - Last Filed: 01/30/17 08:43>
[2017-01-30] MEDS ORDERED: oxyCODONE HCL 5 MG TABLET PO PRN (08:48)
--- NOTE | 2017-01-30 08:51 | PN ---
Progress Note (short form) - Note Progress Note: ANESTHESIOLOGY POST-OP CHECK 56M s/p laparoscopic converted to open cholecystectomy under general anesthesia , POD #1. No acute complaints. Denies N/V, tolerating liquids, ambulating. PAin 2-3/10 and tolerable. Vital Signs Temperature 98.9 F 01/30/17 08:00 Pulse Rate 82 01/30/17 08:00 Respiratory Rate 18 01/30/17 08:00 Blood Pressure 152/80 01/30/17 08:00 O2 Sat by Pulse Oximetry (%) 99 01/29/17 21:00 Active Medications Acetaminophen (Tylenol -) 650 mg PO Q4H PRN PRN Reason: FEVER OR PAIN Hydromorphone HCl (Dilaudid Injection -) 1 mg IVPB Q4H PRN PRN Reason: PAIN Metronidazole (Flagyl 500mg Premixed Ivpb -) 100 mls @ 100 mls/hr IVPB Q6H-IV ALINE Last Admin: 01/30/17 08:46 Dose: 100 mls/hr Piperacillin Sod/Tazobactam Sod (Zosyn 4.5gm Ivpb (Pre-Docked)) 100 mls @ 200 mls/hr IVPB Q8H-IV ALINE PRN Reason: Protocol Last Admin: 01/30/17 01:56 Dose: 200 mls/hr Pantoprazole Sodium (Protonix 40mg Ivpb (Pre-Docked)) 100 mls @ 200 mls/hr IVPB BID ALINE Last Admin: 01/29/17 21:24 Dose: 200 mls/hr Sodium Chloride (Normal Saline -) 1,000 mls @ 83 mls/hr IV ASDIR ALINE Last Admin: 01/30/17 05:51 Dose: 83 mls/hr Ondansetron HCl (Zofran Injection) 4 mg IVPB Q6H PRN PRN Reason: NAUSEA Oxycodone HCl (Roxicodone -) 5 mg PO Q4H PRN PRN Reason: PAIN Oxycodone HCl (Roxicodone -) 10 mg PO Q4H PRN PRN Reason: PAIN Gen: Awake, alert No apparent anesthesia complications. Pain minimal, may D/C CONTOUR PATH TAPE MILL OPERATOR and switch to PRN analgesics when taking PO diet. Continue management as per primary team.
[2017-01-30 09:18] LABS: ALBUMIN 2.4 g/dl (3.4-5.0); ALK PHOS 51 U/L (45-117); ANION GAP 9 (8-16); BILIRUBIN,TOTAL 0.9 mg/dL (0.2-1.0); CALCIUM 8.2 mg/dL (8.5-10.1); CO2 29 mmol/L (21-32); CREATININE 0.6 mg/dL (0.7-1.3); GLUCOSE,RANDOM 94 mg/dL (74-106); SGOT/AST 25 U/L (15-37); SGPT/ALT 48 U/L (12-78); TOT PROT 5.4 g/dl (6.4-8.2)
[2017-01-30] MEDS: PANTOPRAZOLE SODIUM 100 ML IVPB SCH ×2 (10:27→21:12)
--- NOTE | 2017-01-30 11:07 | PN ---
Progress Note, Physician History of Present Illness: POD #2 No c/o abdominal pain No F/C Tolerating regular diet No N/V + Flatus No BM WBC improved BC no growth - Current Medication List Current Medications: Active Medications Acetaminophen (Tylenol -) 650 mg PO Q4H PRN PRN Reason: FEVER OR PAIN Hydromorphone HCl (Dilaudid Injection -) 1 mg IVPB Q4H PRN PRN Reason: PAIN Metronidazole (Flagyl 500mg Premixed Ivpb -) 100 mls @ 100 mls/hr IVPB Q6H-IV ALINE Last Admin: 01/30/17 08:46 Dose: 100 mls/hr Piperacillin Sod/Tazobactam Sod (Zosyn 4.5gm Ivpb (Pre-Docked)) 100 mls @ 200 mls/hr IVPB Q8H-IV ALINE PRN Reason: Protocol Last Admin: 01/30/17 10:26 Dose: 200 mls/hr Pantoprazole Sodium (Protonix 40mg Ivpb (Pre-Docked)) 100 mls @ 200 mls/hr IVPB BID ALINE Last Admin: 01/30/17 10:27 Dose: 200 mls/hr Sodium Chloride (Normal Saline -) 1,000 mls @ 83 mls/hr IV ASDIR ALINE Last Admin: 01/30/17 05:51 Dose: 83 mls/hr Ondansetron HCl (Zofran Injection) 4 mg IVPB Q6H PRN PRN Reason: NAUSEA Oxycodone HCl (Roxicodone -) 5 mg PO Q4H PRN PRN Reason: PAIN Oxycodone HCl (Roxicodone -) 10 mg PO Q4H PRN PRN Reason: PAIN - Objective Vital Signs: Vital Signs Temperature 98.9 F 01/30/17 08:00 Pulse Rate 82 01/30/17 08:00 Respiratory Rate 18 01/30/17 08:00 Blood Pressure 152/80 01/30/17 08:00 O2 Sat by Pulse Oximetry (%) 99 01/29/17 21:00 Constitutional: Yes: No Distress Eyes: Yes: Conjunctiva Clear Cardiovascular: Yes: Regular Rate and Rhythm, S1, S2 Respiratory: Yes: CTA Bilaterally Gastrointestinal: Yes: Normal Bowel Sounds, Soft, Tenderness, Other (+ incisional tenderness. Dressing in place.) Extremities: No: Calf Tenderness Edema: No Labs: CBC, BMP 01/30/17 07:15 01/30/17 07:15 INR, PTT INR 1.15 (0.82-1.09) H 01/27/17 11:27 Assessment/Plan Post op day #2 open cholecystectomy Leukocytosis- improved Continue empiric zosyn/ flagyl When tolerating regular diet, substitute po Augmentin
[2017-01-30] MEDS: oxyCODONE HCL 5 MG TABLET PO PRN ×2 (12:36→21:27)
[2017-01-30] MEDS: ACETAMINOPHEN 325 MG TABLET (FP) PO PRN ×2 (12:37→21:27)
--- NOTE | 2017-01-30 17:54 | PN ---
Physical Exam: SUBJECTIVE: Patient seen and examined. He is ambulating, feeling better, does not want burger for lunch, he is passing gas, no BMs Events: - PARKER drain pulled today - BANKING ATTORNEY discontinued OBJECTIVE: Vital Signs Period Temp Pulse Resp BP Sys/Langley Pulse Ox Last 24 Hr 98 F-99.1 F 81-87 18-20 119-152/69-84 96-99 PE Neuro: alert, awake, cn 2-12intact Pulm: CTAB CV: s1 s2 rrr no mrg Abd: RLQ with dressing intact, abd mod distention, tenderness minimal Ext: warm, no le edema Laboratory Results - last 24 hr 01/30/17 01/30/17 07:15 07:15 WBC 17.4 H RBC 3.08 L Hgb 9.3 L Hct 27.8 L MCV 90.2 MCHC 33.6 RDW 12.8 Plt Count 258 MPV 8.0 Neutrophils % 82.7 Lymphocytes % 9.6 D Monocytes % 7.5 Eosinophils % 0.1 D Basophils % 0.1 Sodium 143 Potassium 3.6 Chloride 105 Carbon Dioxide 29 Anion Gap 9 BUN 17 D Creatinine 0.6 L Creat Clearance w eGFR > 60 Random Glucose 94 D Calcium 8.2 L Total Bilirubin 0.9 AST 25 D ALT 48 Alkaline Phosphatase 51 Total Protein 5.4 L Albumin 2.4 L Active Medications Generic Name Dose Route Start Last Admin Trade Name Freq PRN Reason Stop Dose Admin Acetaminophen 650 mg 01/30/17 08:50 01/30/17 12:37 Tylenol - PO 650 mg Q4H PRN Administration FEVER OR PAIN Hydromorphone HCl 1 mg 01/28/17 18:20 Dilaudid Injection - IVPB Q4H PRN PAIN Metronidazole 100 mls @ 100 mls/hr 01/28/17 21:00 01/30/17 15:50 Flagyl 500mg Premixed Ivpb - IVPB 100 mls/hr Q6H-IV ALINE Administration Piperacillin Sod/Tazobactam Sod 100 mls @ 200 mls/hr 01/29/17 02:00 01/30/17 17 :14 Zosyn 4.5gm Ivpb (Pre-Docked) IVPB 200 mls/hr Q8H-IV ALINE Administration Protocol Pantoprazole Sodium 100 mls @ 200 mls/hr 01/29/17 10:00 01/30/17 10:27 Protonix 40mg Ivpb (Pre-Docked) IVPB 200 mls/hr BID ALINE Administration Ondansetron HCl 4 mg 01/28/17 18:20 Zofran Injection IVPB Q6H PRN NAUSEA Oxycodone HCl 5 mg 01/30/17 08:48 Roxicodone - PO Q4H PRN PAIN Oxycodone HCl 10 mg 01/30/17 08:48 01/30/17 12:36 Roxicodone - PO 10 mg Q4H PRN Administration PAIN Assessment: 56 year old male past surgical hx recent incision hernia from previous surgery (blunt trauma to the abdomen w/bowel resection 9 years ago); admitted with abdominal pain and nausea and vomiting. Plan: 1. Acute cholecystitis - s/p open cholecystectomy 01/28, found to be gangrenous - Continue zosyn (day 2) - Continue flagyl (day 3) - Advance to regular diet - Once tolerating transition to Augmentin 2. Leukocytosis - Resolving - Abx as above 3. HTN - No prior hx, possible pain related - Monitor, initiate HCTZ if persistently elevated Visit type - Emergency Visit Emergency Visit: Yes ED Registration Date: 01/27/17 Care time: The patient presented to the Emergency Department on the above date and was hospitalized for further evaluation of their emergent condition. - New Patient This patient is new to me today: No - Critical Care Critical Care patient: No
[2017-01-31] MEDS: PIPERACILLIN/TAZOB 4.5 GM 100 ML IVPB SCH ×2 (01:39→09:51)
[2017-01-31] MEDS: METRONIDAZOLE 500 MG PREMIXED 100 ML IVPB SCH ×2 (02:35→09:56)
[2017-01-31 06:00] VITALS: TEMP 98.8
--- NOTE | 2017-01-31 08:18 | PN ---
Progress Note (short form) - Note Progress Note: Pt states that he had a bowel movement and passed flatus. Tolerated a regular diet. Vital Signs Period Temp Pulse Resp BP Sys/Langley Pulse Ox Last 24 Hr 98.8 F-99.5 F 77-83 20-20 150-166/84-90 96-96 PE: GEN: A&0x3, NAD ABD: soft, non-distended, inc tenderness. Inc c/d/i with porter. No erythema or drainage. LE: no calf swelling b/l A/P: POD #2 lap to open cholecsyectomy Tolerating a regular diet, oob ambulating Pt seen today with Dr. Escalera and he is stable for discharge to home from the surgical service. Instructions completed and the patient was given a script for Augmentin 875mg BID x 7 days as well as oral narcotics. Follow up labs drawn for today which are pending
[2017-01-31 08:27] VITALS: BP 162/89; PULSE 70
--- NOTE | 2017-01-31 08:31 | OP ---
DATE OF OPERATION: 01/28/2017 PREOPERATIVE DIAGNOSES: Acute cholecystitis, cholelithiasis. POSTOPERATIVE DIAGNOSES: Gangrenous cholecystitis, cholelithiasis. PROCEDURE: Laparoscopic converted to open cholecystectomy. SURGEON: Nabil Escalera MD HIGH FREQUENCY MILL OPERATOR: Heraclio Orta PA-C ANESTHESIA: General. OPERATIVE FINDINGS: There were multiple adhesions from previous abdominal surgery. There was gangrenous cholecystitis and cholelithiasis, and the rest of the findings were unremarkable. DESCRIPTION OF PROCEDURE: The patient was placed on the operating room table in the supine position, and after the induction of general anesthesia, the patient's abdomen was prepped with ChloraPrep and draped in sterile fashion. A timeout was taken, and pneumoperitoneum was established using a Sho cannula via direct cutdown to the peritoneal cavity. Laparoscopy was carried out, and multiple adhesions were found, and visualization into the right upper quadrant could not be achieved. Therefore, the pneumoperitoneum was evacuated, the port removed, and the defect at the fascia closed with a 0 Vicryl figure-of-8 suture. At this time, it was decided to convert to an open cholecystectomy. A right upper quadrant incision was made 2 fingerbreadths below the costal margin. It was taken down through skin and subcutaneous tissue. The anterior fascia was divided. The rectus muscle was divided using electrocautery, and the peritoneum and posterior sheath were divided, entering the peritoneal cavity. The previously noted findings were observed with respect to the gallbladder. Using electrocautery and blunt dissection, the gallbladder was taken down from the fundus distally towards the neck. Several centimeters above the presumed junction between the gallbladder neck and cystic duct, the gallbladder was amputated using electrocautery. The cystic duct was identified from within the gallbladder stump, and then, the gallbladder stump was closed with multiple 3-0 Prolene sutures. A 10-mm Óscar-Bang drain was placed through a separate stab wound into the right hepatorenal fossa and secured to the skin with 2-0 silk suture. Copious irrigation was carried out with normal saline, and hemostasis verified. Next, the incision was closed with continuous 0 looped Maxon to the peritoneum and posterior sheath and continuous 0 looped Maxon to the anterior sheath. The subcutaneous tissue was irrigated, and then, the skin edges reapproximated with surgical porter, as was the incision at the umbilicus from the previous laparoscopy. The drain was connected to self-suction. Dry sterile dressings were placed and the procedure terminated at this point and the patient aroused from general anesthesia and transferred to the postanesthesia care unit in stable condition, awake and alert. ESTIMATED BLOOD LOSS: Approximately 150 mL. REPLACEMENTS: Crystalloid. DRAINS: One 10-mm Óscar-Bang. SPECIMEN: Gallbladder and contents to Pathology. I, Nabil Escalera, was physically present in the operating room from the time the patient was placed on the operating table until he was transferred to the postanesthesia care unit in my accompaniment. MD FRANTZ Cárdenas/[id number]
[2017-01-31 08:42] LABS: BASOPHIL 0.3 % (0-2.0); EOSINOPHIL 0.7 % (0-4.5); MCH 30.6 pg (25.7-33.7); MCHC 34.5 g/dl (32.0-35.9); MEAN CELL VOLUME 88.7 fl (80-96); MEAN PLT VOLUME 7.7 fl (7.5-11.1); NEUTROPHILS 73.1 % (42.8-82.8); PLATELET COUNT 314 K/MM3 (134-434); RDW 12.7 % (11.9-15.9); WHITE BLOOD COUNT 11.1 K/mm3 (4.0-10.0)
[2017-01-31 09:06] LABS: ANION GAP 10 (8-16); CALCIUM 8.5 mg/dL (8.5-10.1); CO2 28 mmol/L (21-32); CREATININE 0.5 mg/dL (0.7-1.3); GLUCOSE,RANDOM 110 mg/dL (74-106)
[2017-01-31] MEDS: PANTOPRAZOLE SODIUM 100 ML IVPB SCH (09:56)
--- NOTE | 2017-01-31 11:09 | PN ---
Progress Note, Physician History of Present Illness: Awake, alert No c/o abdominal pain Tolerating regular diet + BM Afebrile WBC improved - Current Medication List Current Medications: Active Medications Acetaminophen (Tylenol -) 650 mg PO Q4H PRN PRN Reason: FEVER OR PAIN Last Admin: 01/30/17 21:27 Dose: 650 mg Hydromorphone HCl (Dilaudid Injection -) 1 mg IVPB Q4H PRN PRN Reason: PAIN Metronidazole (Flagyl 500mg Premixed Ivpb -) 100 mls @ 100 mls/hr IVPB Q6H-IV ALINE Last Admin: 01/31/17 09:56 Dose: 100 mls/hr Piperacillin Sod/Tazobactam Sod (Zosyn 4.5gm Ivpb (Pre-Docked)) 100 mls @ 200 mls/hr IVPB Q8H-IV ALINE PRN Reason: Protocol Last Admin: 01/31/17 09:51 Dose: 200 mls/hr Pantoprazole Sodium (Protonix 40mg Ivpb (Pre-Docked)) 100 mls @ 200 mls/hr IVPB BID ALINE Last Admin: 01/31/17 09:56 Dose: 200 mls/hr Ondansetron HCl (Zofran Injection) 4 mg IVPB Q6H PRN PRN Reason: NAUSEA Oxycodone HCl (Roxicodone -) 5 mg PO Q4H PRN PRN Reason: PAIN Oxycodone HCl (Roxicodone -) 10 mg PO Q4H PRN PRN Reason: PAIN Last Admin: 01/30/17 21:27 Dose: 10 mg - Objective Vital Signs: Vital Signs Temperature 98.8 F 01/31/17 08:26 Pulse Rate 70 01/31/17 08:26 Respiratory Rate 18 01/31/17 08:26 Blood Pressure 162/89 01/31/17 08:26 O2 Sat by Pulse Oximetry (%) 96 01/30/17 21:00 Constitutional: Yes: No Distress Eyes: Yes: Conjunctiva Clear Cardiovascular: Yes: Regular Rate and Rhythm, S1, S2 Respiratory: Yes: CTA Bilaterally Gastrointestinal: Yes: Normal Bowel Sounds, Soft, Other (Surgical wound RUQ with porter in place). No: Tenderness Edema: No Labs: CBC, BMP 01/31/17 08:26 01/31/17 08:26 INR, PTT INR 1.15 (0.82-1.09) H 01/27/17 11:27 Assessment/Plan Post op day #3 open cholecystectomy Leukocytosis- improved Discontinue empiric zosyn/ flagyl substitute po Augmentin 875mg bid x 7d
--- NOTE | 2017-01-31 11:18 | DS ---
"Physical Exam: SUBJECTIVE: Patient seen and examined at bedside. Feels well. Denies pain. Tolerating food. OBJECTIVE: Vital Signs Period Temp Pulse Resp BP Sys/Langley Pulse Ox Last 24 Hr 98.8 F-99.5 F 70-83 18-20 150-166/84-90 96 PHYSICAL EXAM GENERAL: The patient is awake, alert, and fully oriented, in no acute distress. HEAD: Normal with no signs of trauma. EYES: PERRL, extraocular movements intact, sclera anicteric, conjunctiva clear. ENT: Ears normal, nares patent, oropharynx clear without exudates, moist mucous membranes. NECK: Trachea midline, full range of motion, supple. LUNGS: Breath sounds equal, clear to auscultation bilaterally, no wheezes, no crackles, no accessory muscle use. HEART: Regular rate and rhythm, S1, S2 without murmur, rub or gallop. ABDOMEN: Soft, nontender, nondistended, normoactive bowel sounds, surgical dressing c/d/i EXTREMITIES: 2+ pulses, warm, well-perfused, no edema. NEUROLOGICAL: Cranial nerves II through XII grossly intact. Normal speech, gait not observed. Laboratory Results - last 24 hr 01/31/17 01/31/17 08:26 08:26 WBC 11.1 H D RBC 3.36 L Hgb 10.3 L D Hct 29.8 L MCV 88.7 MCHC 34.5 RDW 12.7 Plt Count 314 D MPV 7.7 Neutrophils % 73.1 Lymphocytes % 16.5 D Monocytes % 9.4 Eosinophils % 0.7 D Basophils % 0.3 Sodium 141 Potassium 3.6 Chloride 103 Carbon Dioxide 28 Anion Gap 10 BUN 13 D Creatinine 0.5 L Random Glucose 110 H Calcium 8.5 HOSPITAL COURSE: Date of Admission:01/27/17 Date of Discharge: 01/31/17 56 year-old male a past medical history significant only for a perforated bowel s/p surgical repair 9 years ago. Admitted for acute cholecystitis. 1. Acute cholecystitis - s/p open cholecystectomy 01/28, found to be gangrenous - treated with Zosyn x 3 days, metronidazole x 4 days; discharged with prescription for augmentin to continue another 7 days of treatement 2. Elevated blood pressure - likely secondary to pain, not treated with medication - should follow up as outpatient Minutes to complete discharge: 35 Discharge Summary Reason For Visit: ACUTE CHOLECYSTITIS Current Active Problems Acute cholecystitis (Acute) S/P laparoscopic cholecystectomy (Acute) Condition: Improved - Instructions Diet, Activity, Other Instructions: Dr. Escalera's Discharge Instructions Dear Pastor, Post Operative Instructions Physical activity Resume your normal everyday activity as tolerated no heavy lifting or exercise until seen by your surgeon. You may walk unlimited amounts of and climb stairs. You may resume driving the car when you feel safe and comfortable behind the wheel. Wound care If you have a bandage, leave it on, and keep dry for 48 - 72 hours. After that time discard the outer bandage. If there are tapes on the skin under the outer bandage, leave them in place. They will peel off in the next 7 to 10 days. Do Not peel them off. You may shower 2 days after surgery. If there are tapes present on the skin, they can get wet. Diet There are no dietary restrictions. Eat healthy, high-fiber foods. Drink 6 to 8 glasses of liquid each day. This will assist in keeping your bowels are regular. Pain management You may take Tylenol or acetaminophen or Ibuprofen (for example, Motrin, Advil etc.) Any pain prescription medication ordered should be taken as prescribed for moderate to severe pain. [place] JUNIOR SOFTWARE ENGINEER checked prior to escribe of narcotic pain management. This report was requested by: Heraclio Orta | Reference #: [id number] Call Dr. Escalera for any of the following: Severe pain not relieved by medication Fever of 101 or higher Excessive bleeding or drainage on dressing Inability to urinate Call the office at [phone] for a post operative appointment in 7 - 10 days. Referrals: Nabil Escalera MD [Staff Physician] - Disposition: HOME - Home Medications Comprehensive Discharge Medication List: Ambulatory Orders Oxycodone HCl/Acetaminophen [Percocet 5-325 mg Tablet] 1 tab PO Q4H #20 tablet MDD 6 01/28/17 Amox-Tr/K Cl [Augmentin - 875Mg Tablet] 1 tab PO BID #14 tablet 01/31/17 This patient is new to me today: Yes Date on this admission: 01/31/17 Emergency Visit: Yes ED Registration Date: 01/27/17 Care time: The patient presented to the Emergency Department on the above date and was hospitalized for further evaluation of their emergent condition. Critical Care patient: No - Discharge Referral Referred to [facility] Med P.[facility] No"
--- NOTE | 2017-01-31 16:15 | PATH ---
Surgical Pathology Report Patient Name: JASBIR REIS Med. Rec. #: [id number] /Age/Gender: 1960 (Age: 56) / M Account: [id number] Location: [address] [place] [address] Taken: 01/29/2017 Received: 01/29/2017 Reported: 01/31/2017 Physicians: MD Teri Cárdenas, NERISSA Specimen(s) Received GALLBLADDER Clinical History Cholecystitis Final Diagnosis GALLBLADDER AND STONES, CHOLECYSTECTOMY: ACUTE GANGRENOUS CHOLECYSTITIS AND CHOLELITHIASIS. Electronically Signed Santiago Cox M.D. Gross Description Received in formalin, labeled "gallbladder and stones" is a 10.0 x 5.0 x 3.0 cm gallbladder with a dilated, open resection margin. The outer surface is burnett, markedly fragmented and disrupted with multifocal defects and attached exudate. There is no bile present within the lumen. There are numerous beltran, irregular choleliths separately received within the same container ranging from 0.5-2.2 cm in greatest dimension. The mucosa is eroded. The wall of the gallbladder averages 0.3 cm in thickness. [employer] sections are submitted in one cassette. /01/29/201701/29/2017
[2017-01-31] MEDS ORDERED: AMOX TR/POT CLAV 875MG/125MG TABLETS (FP) PO SCH (17:30)
== END 2017-01-31 12:23 | disposition home or self-care (01) | DRG 416 ==
LOC: JER 04:45 → JERBED 10:43 → J6S 01-28 20:05
PROVIDERS: ADMIT Internal Medicine; ATTEND Nurse Practitioner Acute Care
PROC: 0FJ44ZZ Inspection of Gallbladder, Percutaneous Endoscopic Approach (ICD-10-PCS; 2017-01-28)
PROC: 0DNW0ZZ Release Peritoneum, Open Approach (ICD-10-PCS; 2017-01-28)
PROC: 0D9W00Z Drainage of Peritoneum with Drainage Device, Open Approach (ICD-10-PCS; 2017-01-28)
PROC: 0FT40ZZ Resection of Gallbladder, Open Approach (ICD-10-PCS; principal; 2017-01-28 16:30)
DX: K80.00 Calculus of gallbladder with acute cholecystitis without obstruction (principal); K66.0 Peritoneal adhesions (postprocedural) (postinfection); K43.2 Incisional hernia without obstruction or gangrene; D72.829 Elevated white blood cell count, unspecified; Z53.31 Laparoscopic surgical procedure converted to open procedure
CPT/HCPCS: 36415; 71020-TC; 74000-TC; 74176-TC; 76705-TC; 80048; 80053; 80076; 81003; 82150; 83690; 83735; 84100; 84484; 85025; 85610; 85730; 86850; 86900; 86901; 87040; 88304-TC; 94760; 99284-25; J1644

== ENCOUNTER 2020-02-22 10:50 | Inpatient (IN) | payer BC ==
[2020-02-22 10:55] VITALS: TEMP 99; BMI 32.5
[2020-02-22] MEDS ORDERED: MECLIZINE HCL 25 MG TABLET (FP) PO ONE ×2 (11:45→11:47)
[2020-02-22] MEDS ORDERED: ONDANSETRON 4 MG/2 ML VIAL IVPUSH ONE (11:50)
--- NOTE | 2020-02-22 11:50 | PDOC ---
History of Present Illness - General Chief Complaint: Lightheaded Stated Complaint: NAUSEA/VOMITING Time Seen by Provider: 02/22/20 11:10 History Source: Patient Exam Limitations: No Limitations - History of Present Illness Initial Comments: 02/22/20 12:12 59M w/o known PMH presenting with sudden onset vertigo (room spinning) and nausea/vomiting that starting this AM. Sx has been persistent. Feels better when laying down on side. Denies changes in vision / hearing, numbness, tingling, weakness. Denies f/c, recent illness, cp, sob, abd pain. Denies tobacco, etoh, illicit drugs. Poor medical f/u. s/p lap cecy. NKDA tPA Exclusion Checklist 0-3hr - Time Elapsed Date last known well: 02/22/20 Time last known well: 07:00 Elaspsed time: Day(s) and 17 Hour(s) and 20 Minutes - Thrombolytic Therapy Candidate Is the patient eligible for Thrombolytic Therapy?: No - Relative Exclusion Criteria 0-3h Stroke severity too mild (non-disabling): Yes - Ineligibility reason(s) Reasons No tPA given: See reason(s) noted above NIH Stroke Scale - Last Known Well Date/Time & Onset Date Last Known Well: 02/22/20 Time Last Known Well: 07:00 - Initial Evaluation Level of consciousness: Alert Ask patient the month and their age: Answers both correctly Ask patient to open & close eyes; make fist and let go: Obeys both correctly Best gaze (horizontal eye movement): Normal Visual field testing: No visual field loss Facial paresis (Show teeth/raise eyebrows/close eyes tight): Normal symmetrical movement Motor Function: Left Arm: Normal Motor Function: Right Arm: Normal (extends arm 90 (or 45) degrees for 10 seconds without drift Motor Function: Left Leg: Normal (extends leg 30 degrees for 5 seconds without drift) Motor Function: Right Leg: Normal (extends leg 30 degrees for 5 seconds without drift) Limb Ataxia: Present in one limb Sensory(Use pinprick test arms,legs,trunk,face/side to side): Normal Best language (Describe picture, name items, read sentences): No Aphasia Dysarthria (read several words): Normal articulation Extinction and Inattention: No abnormality - Total Score NIH Stroke Scale Score: 1 Past History - Medical History Allergies/Adverse Reactions: Allergies Allergy/AdvReac Type Severity Reaction Status Date / Time No Known Allergies Allergy Verified 02/22/20 10:52 Home Medications: Ambulatory Orders Meclizine HCl 25 mg PO Q6H #8 tablet 02/22/20 COPD: No Other medical history: DENIES - Immunization History Immunization Up to Date: Yes - Psycho-Social/Smoking History Smoking History: Never smoked Have you smoked in the past 12 months: No - Substance Abuse Hx (Audit-C & DAST Scrn) How often the patient has a drink containing alcohol: Never Score: In Men: 4 or > Positive; In Women: 3 or > Positive: 0 Screen Result (Pos requires Nsg. Audit-10AR): Negative In the last yr the pt used illegal drug/Rx for NonMed reason: No Score: Yes response is considered Positive: 0 Screen Result (Positive result requires Nsg. DAST-10): Negative Review of Systems - Review of Systems Comments:: 02/23/20 00:21 CONSTITUTIONAL: Denies F / C HEENT: Endorses vertigo. Denies headache, lightheadedness, dizziness, changes in vision / hearing, diplopia, blurry vision, sore throat, rhinorrhea RESP: Denies SOB, cough, orthopnea, LOPEZ CARD: Denies chest pain, palpitations GI: Denies N / V / D, abdominal pain, bloody stool, inability to tolerate PO : Denies dysuria, hematuria, frequency NEURO: Denies numbness, tingling, weakness MSK: Denies back pain SKIN: Denies rashes *Physical Exam - Vital Signs Last Vital Signs Temp Pulse Resp BP Pulse Ox 99.0 F 89 20 179/92 H 100 02/22/20 10:53 02/22/20 10:53 02/22/20 10:53 02/22/20 10:53 02/22/20 10:53 - Physical Exam 02/23/20 00:21 GEN: Well appearing, NAD, comfortable. AAOx3. HEENT: NC/AT, CN II-XII grossly intact, EOMI, PERRLA, horizontal nystagmus on straight gaze. EAC clear b/l; TM nl b/l. No facial asymmetry. Normal voice. Supple neck, FROM. CV: S1/S2, RRR, no m/r/g LUNG: CTAB, no wheezes, crackles, rales, rhonchi. GI: Soft, ndnt, +BS, no guarding, no rebound. MSK: No obvious deformities of all extremities. SKIN: Warm, dry, no rashes appreciated. PSYCH: Normal mood and affect. NEURO: Moving all extremities well. 5/5 UE strength b/l. 5/5 LE strength b/l. Sensation symmetric and intact throughout. No pronator drift. ambulation defer red 2/2 sx. ED Treatment Course - LABORATORY CBC & Chemistry Diagram: 02/22/20 11:35 02/22/20 11:35 - RADIOLOGY Radiology Studies Ordered: Category Date Time Status CHEST X-RAY PORTABLE* [RAD] Stat Radiology 02/22/20 11:27 Ordered Medical Decision Making - Medical Decision Making 02/23/20 00:21 59M w/ vertigo since this AM. Neuro intact. High SBP. - CBC, CMP, Cardiac - EKG 11:13 NSR, intervals nl, no ALEXA/D, isolated TWI V1? flat T III - Meclizine and zofran - reassess 02/22/20 12:57 pt feeling significantly symptomatic relief s/p meds will reassess and attempt to ambulate shortly 02/22/20 13:12 ambulation attempted - patient unsteady and requires assistance ataxia testing reveals LUE ataxia on rapid alternating movement; FTN and heel- morales wnl. 1mg ativan CT head 02/22/20 14:00 CT head negative labs reviewed 02/22/20 14:44 patient continues to be unsteady on his feet neuro c/s admit 02/22/20 16:[address] Mack aware - admit, MRI/MRA, meclizine 25mg PO q6h will admit for CVA eval 02/22/20 16:55 endorsed to MAR // admitted Discharge - Discharge Information Problems reviewed: Yes Clinical Impression/Diagnosis: Vertigo, Ataxia Condition: Fair - Admission Yes - Follow up/Referral - Patient Discharge Instructions - Post Discharge Activity
--- NOTE | 2020-02-22 11:51 | EKG ---
Test Reason : Blood Pressure : / mmHG Vent. Rate : 080 BPM Atrial Rate : 080 BPM P-R Int : 150 ms QRS Dur : 094 ms QT Int : 376 ms P-R-T Axes : 047 024 033 degrees QTc Int : 433 ms NORMAL SINUS RHYTHM NORMAL ECG NO PREVIOUS ECGS AVAILABLE Confirmed by Prasanna Goetz ([id number]) on 02/22/2020 11:51:27 AM Referred By: Confirmed By:Prasanna Goetz
[2020-02-22 12:09] LABS: BASO % 0.3 % (0-2.0); EOS % 0.2 % (0-4.5); HEMOGLOBIN 13.8 GM/dL (11.7-16.9); LYMPH % 8.2 % (8-40); MCH 31.5 pg (25.7-33.7); MCHC 34.4 g/dl (32.0-35.9); MEAN CELL VOLUME 91.5 fl (80-96); MEAN PLT VOLUME 8.6 fl (7.5-11.1); MONO % 4.8 % (3.8-10.2); NEUT % 86.5 % (42.8-82.8); PLATELET COUNT 235 K/MM3 (134-434); RBC 4.37 M/mm3 (4.00-5.60); WHITE BLOOD COUNT 10.4 K/mm3 (4.0-10.0)
--- NOTE | 2020-02-22 12:21 | PDOC ---
Attending Attestation - Resident Resident Name: SlavaBlaise - ED Attending Attestation I have performed the following: I have examined & evaluated the patient, The case was reviewed & discussed with the resident, I agree w/resident's findings & plan - HPI HPI: 02/22/20 12:21 59M w/o known PMH presenting with sudden onset vertigo (room spinning) and nausea/vomiting that starting this AM. Sx has been persistent. Feels better when laying down on side. Denies changes in vision / hearing, numbness, tingling, weakness. Denies f/c, recent illness, cp, sob, abd pain. Denies tobacco, etoh, illicit drugs. has not seen primary care doctor in a while. denies trauma no infectious sx. PMH: none PSH: s/p yany sam. NKDA 02/22/20 15:44 - Physicial Exam PE: 02/22/20 12:21 General: awake and alert, NAD. HEENT: NCAT, PERRL, EOMI, clear conjunctiva, anicteric, moist mucous membranes, clear oropharynx, no oral lesions.. Neck: neck supple, FROM Resp: CTAB, normal and even respirations, no respiratory distress CVS: RRR, no murmurs, 2+ peripheral pulses throughout, no peripheral edema Abdomen: soft, NTND, no rebound or guarding. No CVAT. Back: nontender, normal inspection and ROM MSK: no edema, DIEGO x4, ROM intact. No clubbing or cyanosis. normal bulk and tone. Extremities: no calf tenderness Neuro: Alert, oriented to person time and place. CN II-XII grossly intact. Strength prox and distally 5/5 throughout. Sensation grossly intact to light touch. DIEGO x4. No cerebellar signs, no dysmetria, bilateral finger to nose and heel to morales equal and symmetric. Speech clear. gait unstable, imbalanced Skin: warm and well perfused, cap refill <2 sec, normal color 02/22/20 13:35 02/22/20 15:45 - Medical Decision Making 02/22/20 13:36 Vital Signs Temp Pulse Resp BP Pulse Ox 99.0 F 89 20 179/92 H 100 02/22/20 10:53 02/22/20 10:53 02/22/20 10:53 02/22/20 10:53 02/22/20 10:53 vitals reviewed, no fever hypertensive, likely from acute vertigo neuro intact, however, gait is unstable and imbalanced no headache no cp or sob. ddx. central vs peripheral vertigo, ICH, CVA, posterior circ stroke, anemia, electrolyte/metabolic derangements labs and lytes wnl. neg trop ECG is sinus rhythm, nonischemic CT head neg for acute intracranial pathology, no bleed or CVA. meclizine trial, with only mild improvement 2nd line agent, ativan trial for his vertigo reassessed neuro cs. Dr Mack business development professional. admit for vertigo, intractible sx, unsafe for discharge, gait unstable, r/o posterior circ stroke, MRI imaging and neuro cs as inpatient. 02/22/20 15:07 02/22/20 15:45 Heart Score/ECG Review #1 ECG reviewed & interpreted by me at: 11:15 General ECG Interpretation: Sinus Rhythm, Normal Rate, Normal Intervals 02/22/20 13:38 EKG normal sinus rhythm 80 bpm, no interval abnormalities, narrow QRS, ST and T wave segments and morphology normal. Discharge - Discharge Information Problems reviewed: Yes Clinical Impression/Diagnosis: Vertigo Condition: Fair - Admission Yes - Follow up/Referral - Patient Discharge Instructions - Post Discharge Activity
[2020-02-22] MEDS ORDERED: MECLIZINE HCL 25 MG TABLET (FP) ONE (12:23)
[2020-02-22 12:43] LABS: ALBUMIN 3.5 g/dl (3.4-5.0); ALK PHOS 92 U/L (45-117); ANION GAP 8 MMOL/L (8-16); BILIRUBIN,TOTAL 0.8 mg/dL (0.2-1); BLOOD UREA NITROGEN 13.3 mg/dL (7-18); CHLORIDE 106 mmol/L (98-107); CO2 27 mmol/L (21-32); CREATININE 0.7 mg/dL (0.55-1.3); GLUCOSE,RANDOM 165 mg/dL (74-106); POTASSIUM 4.3 mmol/L (3.5-5.1); SGOT/AST 20 U/L (15-37); SGPT/ALT 40 U/L (13-61); SODIUM 141 mmol/L (136-145)
[2020-02-22] MEDS ORDERED: LORazepam 2 MG/ML SDV VIAL ONE (13:13)
[2020-02-22] MEDS ORDERED: ASPIRIN 81 MG CHEWABLE TABLETS PO ONE (16:12)
[2020-02-22] MEDS ORDERED: MECLIZINE HCL 25 MG TABLET (FP) PO PRN (17:17)
[2020-02-22] MEDS ORDERED: MECLIZINE HCL 25 MG TABLET (FP) PO STA (18:15)
[2020-02-22 18:22] LABS: URINE APPEARANCE CLEAR; URINE BILIRUBIN NEGATIVE (NEGATIVE); URINE COLOR YELLOW; URINE GLUCOSE (UA) NEGATIVE (NEGATIVE); URINE KETONE NEGATIVE (NEGATIVE); URINE LEUK ESTERASE NEGATIVE (NEGATIVE); URINE NITRITE NEGATIVE (NEGATIVE); URINE PROTEIN NEGATIVE (NEGATIVE); URINE UROBILINOGEN 0.2 mg/dL (0.2-1.0)
--- NOTE | 2020-02-22 18:27 | PN ---
Teaching Attending Note Name of Resident: Josiah Meraz ATTENDING PHYSICIAN STATEMENT I saw and evaluated the patient. I reviewed the resident's note and discussed the case with the resident. I agree with the resident's findings and plan as documented. SUBJECTIVE: This is a 59 y/o M with no significant PMH who presents with dizziness and s ensation of the room moving. Patient states that he was in his usual state of health up until this morning, where this sensation came onto him all of a sudden. He states that the sensation made him nauseous causing him to have multiple episodes of Non-bloody non bilious vomiting. Patient states that when he is sitting he feels ok, but when he stands he is unstable. In addition, patient reports that he started taking a supplement few days back to increase his stamina. Otherwise he denies any changes in his health. REVIEW OF SYSTEMS CONSTITUTIONAL: Absent: fever, chills, diaphoresis, generalized weakness, malaise, loss of appetite, weight change HEENT: Absent: rhinorrhea, nasal congestion, throat pain, throat swelling, difficulty swallowing, mouth swelling, ear pain, eye pain, visual changes CARDIOVASCULAR: Absent: chest pain, syncope, palpitations, irregular heart rate, lightheadedness, peripheral edema RESPIRATORY: Absent: cough, shortness of breath, dyspnea with exertion, orthopnea, wheezing, stridor, hemoptysis GASTROINTESTINAL: +nausea/vomitin g Absent: abdominal pain, abdominal distension, diarrhea, constipation, melena, hematochezia GENITOURINARY: Absent: dysuria, frequency, urgency, hesitancy, hematuria, flank pain, genital pain MUSCULOSKELETAL: Absent: myalgia, arthralgia, joint swelling, back pain, neck pain SKIN: Absent: rash, itching, pallor HEMATOLOGIC/IMMUNOLOGIC: Absent: easy bleeding, easy bruising, lymphadenopathy, frequent infections ENDOCRINE: Absent: unexplained weight gain, unexplained weight loss, heat intolerance, cold intolerance NEUROLOGIC: +Headache, dizziness No Focal Weakness PSYCHIATRIC: Absent: anxiety, depression, suicidal or homicidal ideation, hallucinations. PHYSICAL EXAMINATION Vital Signs Period Temp Pulse Resp BP Sys/Langley Pulse Ox Last 24 Hr 99.0 F 89 20 179/92 100 GENERAL: Awake, alert, and fully oriented, in no acute distress. HEAD: Normal with no signs of trauma. EYES: Pupils equal, round and reactive to light, extraocular movements intact, sclera anicteric, conjunctiva clear. No lid lag. EARS, NOSE, THROAT: Ears normal, nares patent, oropharynx clear without exudates. Moist mucous membranes. NECK: Normal range of motion, supple without lymphadenopathy, JVD, or masses. LUNGS: Breath sounds equal, clear to auscultation bilaterally. No wheezes, and no crackles. No accessory muscle use. HEART: Regular rate and rhythm, normal S1 and S2 without murmur, rub or gallop. ABDOMEN: Soft, nontender, not distended, normoactive bowel sounds, no guarding, no rebound, no masses. No hepatomegaly or splenomegaly. MUSCULOSKELETAL: Normal range of motion at all joints. No bony deformities or tenderness. No CVA tenderness. UPPER EXTREMITIES: 2+ pulses, warm, well-perfused. No cyanosis. No clubbing. Cap refill <2 seconds. No peripheral edema. LOWER EXTREMITIES: 2+ pulses, warm, well-perfused. No calf tenderness. No p eripheral edema. NEUROLOGICAL: Cranial nerves II-XII intact. Normal speech. instable gait, [place] Halpike is negative, No Nystagmus PSYCHIATRIC: Cooperative. Good eye contact. Appropriate mood and affect. SKIN: Warm, dry, normal turgor, no rashes or lesions noted. ASSESSMENT AND PLAN: 59 y/o M who presents with dizziness Dizziness: BPPV vs CVA r/o CVA: CT head negative Pending MRI Continue supportive treatment with meclizine Appreciate Neuro Recs Advised patient to stop taking supplements Consider Carotid US Monitor on Tele BP Goal at discharge < 140/90 Check lipid Panel, A1c Rest of plan as per resident note
--- NOTE | 2020-02-22 18:28 | HP ---
CHIEF COMPLAINT: dizziness w/ sensation of vision bouncing around PCP: doesn't regularly see PCP HISTORY OF PRESENT ILLNESS: 59M pmh of open cholecystectomy(Jw, January 2017), abd trauma sp ex-lap(>10ys prior), lack of regular medical follow-up(hasn't seen PCP in years, no meds) brought into [facility] w/ complaint of sudden-onset dizziness. At ~7-8am, today was walking down the hallway after having some coffee and experienced sudden-onset dizziness with sensation that his vision was bouncing around, no spinning. Had nausea; vomitting x10, consisting of fluids he drank then yellow-green fluid. Had difficulty maintaining balancing while walking. No new medications as patient does not regularly take meds. Has been taking Jing Root x3d purchased at [employer] for the purpose of increasing his "stamina". Denies fevers, chills, VALADEZ, CP, palpitations, SOB, abd pain, dysuria, diarrhea, tooth pain, s inus pressure, h/o VALADEZ, h/o migraines. Denies h/o trauma to the head. No h/o nsx. No h/o tick bites. Denies h/o CVA, MT, DM, HTN, HLD. 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 Has been social distancing. ER course was notable for: (1) Tmax 99F, BP 179/82 (2) WBC 10.4 (3) CXR: neg (4) CTH: neg for intracranial pathology (5) ED resident(Slava) spoke to Neuro(Frederick) who rec MRI, meclizine 25mg q6h, consider ENT consult (6) zofran, ativan 1mg, ASA 324mg, meclizine 50mg (7) ataxia with ED ambulation Recent Travel: denies PAST MEDICAL HISTORY: as above PAST SURGICAL HISTORY: open cholecystectomy exploratory laparotomy Social History: Smokin/2 ppd from 17y/o to ~31y/o Alcohol: social Drugs: denies Allergies No Known Allergies Allergy (Verified 02/22/20 10:52) HOME MEDICATIONS: REVIEW OF SYSTEMS CONSTITUTIONAL: Absent: fever, chills, diaphoresis, generalized weakness, malaise, loss of appetite, weight change HEENT: Absent: rhinorrhea, nasal congestion, throat pain, throat swelling, difficulty swallowing, mouth swelling, ear pain, eye pain, visual changes CARDIOVASCULAR: Absent: chest pain, syncope, palpitations, irregular heart rate, lightheadedness, peripheral edema RESPIRATORY: Absent: cough, shortness of breath, dyspnea with exertion, orthopnea, wheezing, stridor, hemoptysis GASTROINTESTINAL: nausea, vomiting Absent: abdominal pain, abdominal distension, diarrhea, constipation, melena, hematochezia GENITOURINARY: Absent: dysuria, frequency, urgency, hesitancy, hematuria, flank pain, genital pain MUSCULOSKELETAL: Absent: myalgia, arthralgia, joint swelling, back pain, neck pain SKIN: Absent: rash, itching, pallor HEMATOLOGIC/IMMUNOLOGIC: Absent: easy bleeding, easy bruising, lymphadenopathy, frequent infections ENDOCRINE: Absent: unexplained weight gain, unexplained weight loss, heat intolerance, cold intolerance NEUROLOGIC: bouncing vision, now VALADEZ Absent: focal weakness or paresthesias, dizziness, unsteady gait, seizure, mental status changes, bladder or bowel incontinence PSYCHIATRIC: Absent: anxiety, depression, suicidal or homicidal ideation, hallucinations. PHYSICAL EXAMINATION Vital Signs - 24 hr 02/22/20 10:53 Temperature 99.0 F Pulse Rate 89 Respiratory 20 Rate Blood Pressure 179/92 H O2 Sat by Pulse 100 Oximetry (%) GENERAL: Awake, alert, and fully oriented, in no acute distress. HEAD: NC/AT EYES: extraocular movements intact, sclera anicteric, conjunctiva clear. EARS, NOSE, THROAT: oropharynx clear without exudates. Moist mucous membranes. NECK: Normal range of motion, supple without lymphadenopathy, JVD, or masses. LUNGS: Breath sounds equal, clear to auscultation bilaterally. No wheezes, and no crackles. No accessory muscle use. HEART: Regular rate and rhythm, normal S1 and S2 without murmur, rub or gallop. ABDOMEN: Soft, nontender, not distended, no guarding, no rebound, no masses. MUSCULOSKELETAL: Normal range of motion at all joints. No bony deformities or tenderness. LOWER EXTREMITIES: 2+ pulses, warm, well-perfused. No calf tenderness. No peripheral edema. NEUROLOGICAL: Cranial nerves II-XII intact. Normal speech. Neg Dysdiadochokinesia. Neg heel-morales disability. BUE 5/5 strength, BLE 5/5 strength. + Romberg's sign. Ataxic gait with truncal swaying. Having nausea with Loren's maneuver, neg nystagmus b/l. Maneuver limited by pt's large body habitus(6ft, 108kg). Laboratory Results - last 24 hr 02/22/20 02/22/20 11:35 11:35 WBC 10.4 H RBC 4.37 Hgb 13.8 Hct 40.0 D MCV 91.5 MCH 31.5 MCHC 34.4 RDW 13.0 Plt Count 235 D MPV 8.6 D Absolute Neuts (auto) 9.0 H Neutrophils % 86.5 H Lymphocytes % 8.2 D Monocytes % 4.8 Eosinophils % 0.2 Basophils % 0.3 Nucleated RBC % 0 Sodium 141 Potassium 4.3 Chloride 106 Carbon Dioxide 27 Anion Gap 8 BUN 13.3 Creatinine 0.7 Est GFR (CKD-EPI)AfAm 120.56 Est GFR (CKD-EPI)NonAf 104.02 Random Glucose 165 H Calcium 9.0 Total Bilirubin 0.8 AST 20 ALT 40 Alkaline Phosphatase 92 Creatine Kinase 49 Troponin I < 0.02 Total Protein 7.0 Albumin 3.5 ASSESSMENT/PLAN: 59M pmh of open cholecystectomy([place], January 2017), abd trauma sp ex-lap(>10ys prior), lack of regular medical follow-up(hasn't seen PCP in years, no meds) brought into [facility] w/ complaint of sudden-onset dizziness with sensation of bouncing vision(no spinning), has associated NV. HTN(179/92), but labs not very remarkable. Admitted for intractable dizziness possibly 2/2 otolith; less likely CVA. #dizziness --possibly 2/2 otolith, possibly 2/2 labyrinthitis, possibly 2/2 Macca Root, less likely TIA/CVA > CTH: neg for intracranial pathology > MRI brain -- to eval for CVA -- pending(initially aborted d/t nausea) - meclizine 25mg q6h PRN for dizziness - zofran 4mg q6h PRN for nausea - fu lyme titers - Neuro consult(Frederick): --ED: "MRI, meclizine 25mg q6h" #leukocytosis --unlikely infectious > WBC 10.4 > CXR neg > UA neg - trend #HTN, possibly chronic > BP 179/92 - consider amlodipine 5mg if persistently HTN #poor health maintenance - fu TSH - fu HbA1c - outpt colonoscopy FEN - NS @100 - regular diet DVT PPX - lovenox Family Medical History Family Hx Diabetes: Mother Visit type - Emergency Visit Emergency Visit: Yes ED Registration Date: 02/22/20 Care time: The patient presented to the Emergency Department on the above date and was hospitalized for further evaluation of their emergent condition. - New Patient This patient is new to me today: Yes Date on this admission: 02/23/20 - Critical Care Critical Care patient: No ATTENDING PHYSICIAN STATEMENT I saw and evaluated the patient. I reviewed the resident's note and discussed the case with the resident. I agree with the resident's findings and plan as documented. SUBJECTIVE: OBJECTIVE: ASSESSMENT AND PLAN:
[2020-02-22] MEDS ORDERED: amLODIPine BESYLATE 5 MG TABLET (FP) PO SCH (18:30)
[2020-02-22 19:04] VITALS: BP 137/60; PULSE 75
[2020-02-22] MEDS ORDERED: ONDANSETRON 4 MG/2 ML VIAL IVPUSH PRN (19:20)
[2020-02-22] MEDS ORDERED: SODIUM CHLORIDE 1,000 ML IV SCH (19:30)
--- NOTE | 2020-02-22 20:25 | CONSULT ---
Consult - text type - Consultation Consultation Note: NEUROLOGY CONSULTATION is greatly appreciated: Events reviewed and discussed with ED MD. Patient examined. This 59 yo RH man with two daughters (26. 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 No sig PMH. + FH of ASHD, CABG in father (d 52). Awoke this AM in [facility]. After breakfast developed spinning vertigo. Was unsteady ambulating to his bed where vertigo continued and he developed nausea and vomiting. No headaches. No prior episodes. No tinnitus or change in hearing. Much more comfortable laying on the right side. Increased vertigo turning to the left. CT of head (reviewed): Normal. Attemped MRI but couldn't tolerate. Given Meclizine and zofran with marked improvement. Able to tolerate PO snack and ambulate to the bathroom without assistance. LUPE: Neck supple. No bruits, Cor reg NEURO: MS/speech: Normal CN: Conjugate right beating nystagmus on right gaze and upgaze but resolves on downgaze and left gaze Full ryder, No facial, gag normal Motor: No drift or tremor. Normal strength, tone, bulk and reflexes. Toes downgoing. Coord: No FTN or HTS dystaxia Sensory: Normal Gait: Slioghtly wide base IMP: Acute labyrinthitis. Probably left sided. SUGGEST: OK to D/C on meclizine 25 mg q 6 hrs x 2 days then q8 hrs while symptoms persist. Zofran PRN Neuro and ENT f/u as out patient. Thank you very much, Blaise Mack MD
--- NOTE | 2020-02-22 21:44 | PN ---
Progress Note (short form) - Note Progress Note: Patient requesting to leave AMA. I have explained risks of leaving prior to brain MRI including worsening dizziness, risk of falls, and potentially . Patient is aware of and understands these risks. As per neurology recommendations I have sent 2 days of meclizine 15mg q6h to patient's pharmacy. Instructed patient to follow up with Dr. Mack neurology and ENT. Advised discontinuation of herbal supplements.
[2020-02-23] MEDS ORDERED: ENOXAPARIN NA (PORCINE) 40 MG/0.4 ML DISP.SYRIN SQ SCH (10:00)
== END 2020-02-22 22:20 | disposition left against medical advice (07) | DRG 149 ==
LOC: JER 10:50 → JERBED 17:23
PROVIDERS: ADMIT Internal Medicine; ATTEND Internal Medicine
DX: H83.09 Labyrinthitis, unspecified ear (principal); I10 Essential (primary) hypertension; D72.829 Elevated white blood cell count, unspecified; R42 Dizziness and giddiness
CPT/HCPCS: 36415; 70450-TC; 71045-TC-FY; 80053; 81003; 82550; 84484; 85025; 93005; 93010; 99285-25

== ENCOUNTER 2023-01-07 16:02 | Inpatient (IN) | payer BC ==
[2023-01-07] MEDS ORDERED: ONDANSETRON 4 MG/2 ML VIAL IVPUSH ONE ×2 (16:43→18:44)
[2023-01-07] MEDS ORDERED: ACETAMINOPHEN 1000 MG/100 ML BAG IVPB ONE (16:43)
[2023-01-07] MEDS ORDERED: SODIUM CHLORIDE 0.9% 500 ML INFUS.BAG IV ONE (16:43)
[2023-01-07] MEDS ORDERED: ACETAMINOPHEN INJECTION 100 ML IVPB ONE ×2 (16:55→23:53)
[2023-01-07] MEDS ORDERED: ONDANSETRON 4 MG/2 ML VIAL ONE ×2 (16:55→18:53)
[2023-01-07 17:21] LABS: BASO % 0.1 % (0-2.0); EOS % 0.1 % (0-4.5); HEMATOCRIT 44.4 % (35.4-49); HEMOGLOBIN 15.1 GM/dL (11.7-16.9); LYMPH % 8.5 % (8-40); MCH 30.2 pg (25.7-33.7); MEAN CELL VOLUME 88.9 fl (80-96); MONO % 8.8 % (3.8-10.2); NEUT % 82.5 % (42.8-82.8); PLATELET COUNT 311 10^3/uL (134-434); RBC 4.99 M/mm3 (4.00-5.60); WHITE BLOOD COUNT 15.9 K/mm3 (4.0-10.0)
[2023-01-07 17:30] LABS: INR 1.11 (0.83-1.09); PROTHROMBIN TIME (PATIENT) 12.9 SEC (9.7-13.0)
[2023-01-07 17:33] LABS: ACTIVATED PTT 32.3 SECONDS (25.2-36.5)
[2023-01-07 17:37] LABS: CALCIUM 10.4 mg/dL (8.5-10.1)
[2023-01-07 17:41] LABS: CREATININE 0.7 mg/dL (0.55-1.3)
[2023-01-07 17:42] LABS: TOT PROT 7.8 g/dl (6.4-8.2)
[2023-01-07 17:43] LABS: BILIRUBIN,TOTAL 1.4 mg/dL (0.2-1)
[2023-01-07 18:15] LABS: BILIRUBIN,DIRECT 0.4 mg/dL (0.0-0.2)
[2023-01-07] MEDS ORDERED: FAMOTIDINE 20 MG/50 ML IVPB 20 MG/50 ML MG IVPB ONE ×2 (18:44→18:53)
[2023-01-07] MEDS ORDERED: LACTATED RINGERS SOLUTION 1,000 ML/1,000 ML INFUS.BAG IV SCH ×2 (18:45→23:42)
[2023-01-07] MEDS ORDERED: MIDAZOLAM HCL 2 MG/2 ML SINGLE DOSE VIAL IVPUSH ONE (19:07)
[2023-01-07] MEDS ORDERED: LORazepam 2 MG/ML SDV VIAL IVPUSH ONE (19:07)
[2023-01-07] MEDS ORDERED: MIDAZOLAM HCL 2 MG/2 ML SINGLE DOSE VIAL ONE ×2 (19:07→19:16)
[2023-01-07] MEDS ORDERED: MIDAZOLAM HCL 5 MG/1 ML Single Dose Vial IVPUSH ONE (19:16)
[2023-01-07 19:39] LABS: URINE APPEARANCE CLEAR; URINE BILIRUBIN NEGATIVE (NEGATIVE); URINE COLOR YELLOW; URINE GLUCOSE (UA) NEGATIVE (NEGATIVE); URINE KETONE 40 mg/dl (NEGATIVE); URINE LEUK ESTERASE NEGATIVE (NEGATIVE); URINE NITRITE NEGATIVE (NEGATIVE); URINE PROTEIN TRACE (NEGATIVE)
[2023-01-07] MEDS ORDERED: LIDOCAINE HCL 2% JELLY 10 ML CARTRIDGE ONE (19:53)
[2023-01-07] MEDS ORDERED: ACETAMINOPHEN 1000 MG/100 ML BAG IVPB PRN ×2 (20:08→23:42)
[2023-01-07] MEDS ORDERED: ONDANSETRON 4 MG/2 ML VIAL IVPUSH PRN (20:09)
[2023-01-07] MEDS ORDERED: PROPOFOL 40 ML ONE (21:30)
[2023-01-07] MEDS ORDERED: ERTAPENEM SODIUM 1 GM VIAL IVPB ONE (22:08)
[2023-01-07] MEDS ORDERED: ERTAPENEM SODIUM 1 GM VIAL ONE (22:13)
[2023-01-07] MEDS ORDERED: ROCURONIUM BROMIDE 50 MG/5 ML SYRINGE ONE (22:16)
[2023-01-07] MEDS ORDERED: NEOSTIGMINE METHYLSULFATE 0.5 MG/1 ML - 10 ML MDV ONE (22:58)
[2023-01-07] MEDS ORDERED: PROMETHAZINE HCL 25 MG/1 ML VIAL IVPB PRN ×2 (23:26→23:42)
[2023-01-07] MEDS ORDERED: PROMETHAZINE HCL 25 MG/1 ML VIAL ONE (23:28)
[2023-01-07] MEDS ORDERED: LACTATED RINGERS SOLUTION 1,000 ML IV SCH (23:30)
[2023-01-07] MEDS ORDERED: SODIUM CHLORIDE 1,000 ML IV SCH (23:45)
[2023-01-08] MEDS: ONDANSETRON 4 MG/2 ML VIAL IVPUSH PRN ×2 (00:15→17:32)
[2023-01-08] MEDS ORDERED: IBUPROFEN 800 MG/8 ML IJ IVPB PRN (00:17)
[2023-01-08] MEDS ORDERED: ONDANSETRON 4 MG/2 ML VIAL IVPUSH PRN (00:17)
[2023-01-08] MEDS ORDERED: PIPERACILLIN/TAZOB 3.375 GM 3.375 GM in DEXTROSE 5%-WATER - 50 ML IVPB SCH (02:00)
[2023-01-08] MEDS: morphine SULFATE 4 MG/ML VIAL IVPUSH PRN ×3 (02:40→21:31)
[2023-01-08] MEDS: PIPERACILLIN/TAZOB 3.375 GM 3.375 GM in DEXTROSE 5%-WATER - 50 ML IVPB SCH ×3 (02:43→17:32)
[2023-01-08] MEDS ORDERED: PIPERACILLIN/TAZOBACTAM 3.375 GM VIAL IVPB ONE ×2 (03:32→17:12)
[2023-01-08] MEDS: LACTATED RINGERS SOLUTION 1,000 ML IV SCH ×2 (05:44→21:30)
[2023-01-08 06:45] VITALS: BMI 31.1
[2023-01-08] MEDS ORDERED: hydrALAZINE HCL 20 MG/ML VIAL IVPUSH PRN (07:54)
[2023-01-08 09:10] LABS: HEMATOCRIT 37.2 % (35.4-49); HEMOGLOBIN 12.7 GM/dL (11.7-16.9); MCH 30.5 pg (25.7-33.7); MCHC 34.2 g/dl (32.0-35.9); MEAN CELL VOLUME 89.2 fl (80-96); MEAN PLT VOLUME 8.1 fl (7.5-11.1); PLATELET COUNT 266 10^3/uL (134-434); RBC 4.17 M/mm3 (4.00-5.60); RDW 12.8 % (11.9-15.9); WHITE BLOOD COUNT 13.1 K/mm3 (4.0-10.0)
[2023-01-08 09:16] LABS: POTASSIUM 3.8 mmol/L (3.5-5.1)
[2023-01-08 09:22] LABS: BLOOD UREA NITROGEN 12.5 mg/dL (7-18)
[2023-01-08 09:25] LABS: CREATININE 0.7 mg/dL (0.55-1.3)
[2023-01-08 09:26] LABS: BILIRUBIN,TOTAL 1.6 mg/dL (0.2-1); TOT PROT 6.1 g/dl (6.4-8.2)
[2023-01-08 09:43] LABS: ALBUMIN 3.1 g/dl (3.4-5.0); CALCIUM 8.6 mg/dL (8.5-10.1)
[2023-01-08] MEDS ORDERED: PANTOPRAZOLE SODIUM 40 MG VIAL IVPUSH SCH (10:00)
[2023-01-08] MEDS: ENOXAPARIN NA (PORCINE) 40 MG/0.4 ML DISP.SYRIN SQ SCH (10:20)
[2023-01-08] MEDS: PANTOPRAZOLE SODIUM 40 MG VIAL IVPUSH SCH (10:29)
[2023-01-08] MEDS ORDERED: hydrALAZINE HCL 20 MG/ML VIAL IVPB PRN (11:43)
[2023-01-09] MEDS: LACTATED RINGERS SOLUTION 1,000 ML IV SCH (00:24)
[2023-01-09] MEDS: PIPERACILLIN/TAZOB 3.375 GM 3.375 GM in DEXTROSE 5%-WATER - 50 ML IVPB SCH ×3 (01:11→18:18)
[2023-01-09] MEDS ORDERED: PIPERACILLIN/TAZOB 3.375 GM 3.375 GM in DEXTROSE 5%-WATER - 50 ML IVPB SCH (02:00)
[2023-01-09 10:28] LABS: BASO % 0.3 % (0-2.0); EOS % 0.4 % (0-4.5); HEMATOCRIT 37.3 % (35.4-49); HEMOGLOBIN 13.2 GM/dL (11.7-16.9); LYMPH % 13.8 % (8-40); MCH 31.6 pg (25.7-33.7); MCHC 35.4 g/dl (32.0-35.9); MEAN CELL VOLUME 89.3 fl (80-96); MEAN PLT VOLUME 8.5 fl (7.5-11.1); NEUT % 75.5 % (42.8-82.8); PLATELET COUNT 261 10^3/uL (134-434); RBC 4.17 M/mm3 (4.00-5.60); RDW 12.7 % (11.9-15.9); WHITE BLOOD COUNT 9.4 K/mm3 (4.0-10.0)
[2023-01-09] MEDS: PANTOPRAZOLE SODIUM 40 MG VIAL IVPUSH SCH (10:40)
[2023-01-09] MEDS: ENOXAPARIN NA (PORCINE) 40 MG/0.4 ML DISP.SYRIN SQ SCH (10:40)
[2023-01-09 10:53] LABS: POTASSIUM 3.6 mmol/L (3.5-5.1)
[2023-01-09 11:10] LABS: CALCIUM 9.1 mg/dL (8.5-10.1)
[2023-01-09 11:11] LABS: ALBUMIN 3.4 g/dl (3.4-5.0); BLOOD UREA NITROGEN 13.6 mg/dL (7-18); MAGNESIUM 2.3 mg/dL (1.8-2.4)
[2023-01-09 11:14] LABS: CREATININE 0.6 mg/dL (0.55-1.3); PHOSPHOROUS 2.8 mg/dL (2.5-4.9)
[2023-01-09 11:16] LABS: BILIRUBIN,TOTAL 1.5 mg/dL (0.2-1)
[2023-01-09 11:18] LABS: TOT PROT 6.9 g/dl (6.4-8.2)
[2023-01-09] MEDS ORDERED: ACETAMINOPHEN 500 MG TABLET (FP) PO PRN (12:23)
[2023-01-09] MEDS ORDERED: IBUPROFEN 800 MG/8 ML IJ IVPB PRN (12:24)
[2023-01-09] MEDS: amLODIPine BESYLATE 5 MG TABLET (FP) PO SCH (14:40)
[2023-01-09 21:40] VITALS: RESP 18
[2023-01-09] MEDS: morphine SULFATE 4 MG/ML VIAL IVPUSH PRN (21:40)
[2023-01-10] MEDS: PIPERACILLIN/TAZOB 3.375 GM 3.375 GM in DEXTROSE 5%-WATER - 50 ML IVPB SCH ×2 (01:32→09:21)
[2023-01-10] MEDS: ENOXAPARIN NA (PORCINE) 40 MG/0.4 ML DISP.SYRIN SQ SCH (09:20)
[2023-01-10] MEDS: amLODIPine BESYLATE 5 MG TABLET (FP) PO SCH (09:20)
[2023-01-10] MEDS: PANTOPRAZOLE SODIUM 40 MG VIAL IVPUSH SCH (09:20)
[2023-01-10 09:50] LABS: HEMATOCRIT 34.8 % (35.4-49); HEMOGLOBIN 12.2 GM/dL (11.7-16.9); MCH 31.1 pg (25.7-33.7); MCHC 34.9 g/dl (32.0-35.9); MEAN PLT VOLUME 8.3 fl (7.5-11.1); PLATELET COUNT 269 10^3/uL (134-434); RBC 3.91 M/mm3 (4.00-5.60); RDW 12.8 % (11.9-15.9); WHITE BLOOD COUNT 10.4 K/mm3 (4.0-10.0)
[2023-01-10 10:15] LABS: POTASSIUM 3.8 mmol/L (3.5-5.1)
[2023-01-10 10:18] LABS: CALCIUM 8.8 mg/dL (8.5-10.1)
[2023-01-10 10:19] LABS: ALBUMIN 3.1 g/dl (3.4-5.0); BLOOD UREA NITROGEN 8.8 mg/dL (7-18); MAGNESIUM 2.2 mg/dL (1.8-2.4)
[2023-01-10 10:21] LABS: TOT PROT 6.5 g/dl (6.4-8.2)
[2023-01-10 10:22] LABS: CREATININE 0.6 mg/dL (0.55-1.3); PHOSPHOROUS 2.7 mg/dL (2.5-4.9)
[2023-01-10 10:23] LABS: BILIRUBIN,TOTAL 0.9 mg/dL (0.2-1)
[2023-01-10 15:02] VITALS: BP 141/71; PULSE 82; TEMP 99.5
== END 2023-01-10 17:27 | disposition home or self-care (01) | DRG 337 ==
LOC: JER 16:02 → JERBED 18:36 → J6S 01-08 02:29
PROVIDERS: ADMIT Internal Medicine; ATTEND Internal Medicine
PROC: 0DNW0ZZ Release Peritoneum, Open Approach (ICD-10-PCS; 2023-01-07)
PROC: 0WUF0JZ Supplement Abdominal Wall with Synthetic Substitute, Open Approach (ICD-10-PCS; principal; 2023-01-07 20:00)
DX: K43.0 Incisional hernia with obstruction, without gangrene (principal); K66.0 Peritoneal adhesions (postprocedural) (postinfection); I16.0 Hypertensive urgency; E66.9 Obesity, unspecified; Z68.31 Body mass index [BMI] 31.0-31.9, adult
CPT/HCPCS: 0241U-QW; 36415; 74019-TC-FY; 74177-TC; 80053; 81003; 82248; 83036; 83605; 83690; 83735; 84100; 85025; 85027; 85610; 85730; 86850; 86900; 86901; 88302-TC; 93005; 93010; 94760; 99285-25; C1781; Q9967

== ENCOUNTER 2024-12-18 18:44 | Emergency (ER) | payer BC ==
[2024-12-18 19:09] VITALS: RESP 17; BMI 32.5
[2024-12-18 19:24] VITALS: BP 163/71; PULSE 64
[2024-12-18 19:27] VITALS: TEMP 98.1
[2024-12-18] MEDS ORDERED: ONDANSETRON *ODT* 4 MG TABLET ONE (20:00)
[2024-12-18] MEDS ORDERED: cloNIDine HCL 0.1 MG TABLET ONE (20:00)
[2024-12-18] MEDS: cloNIDine HCL 0.1 MG TABLET PO ONE (20:05)
[2024-12-18] MEDS: ONDANSETRON *ODT* 4 MG TABLET SL ONE (20:05)
== END 2024-12-18 20:17 | disposition home or self-care (01) ==
LOC: JER 18:44
DX: R61 Generalized hyperhidrosis (principal); T40.1X1A Poisoning by heroin, accidental (unintentional), initial encounter; R45.1 Restlessness and agitation; R40.4 Transient alteration of awareness
CPT/HCPCS: 93005; 93010; 99283-25; Q0162

== ENCOUNTER 2024-12-18 20:43 | Inpatient (IN) | payer BC, OTHER ==
[2024-12-18 21:30] VITALS: BMI 32.5
[2024-12-18] MEDS ORDERED: guaiFENesin 600 MG TABLET.ER (FP) PO PRN (21:57)
[2024-12-18] MEDS ORDERED: ONDANSETRON *ODT* 4 MG TABLET SL PRN (21:57)
[2024-12-18] MEDS ORDERED: POLYETHYLENE GLYCOL (HEALTHYLAX) 3350 17 GM PACKET PO PRN (21:57)
[2024-12-18] MEDS ORDERED: DICYCLOMINE HCL 10 MG CAPSULE PO PRN (21:57)
[2024-12-18] MEDS ORDERED: MAG HYDROX/AL HYDROX/SIMETH 30 ML UNIT-DOSE CUP PO PRN (21:57)
[2024-12-18] MEDS ORDERED: BENZONATATE 200 MG CAPSULE PO PRN (21:57)
[2024-12-18] MEDS ORDERED: LOPERAMIDE HCL 2 MG CAPSULE PO PRN (21:57)
[2024-12-18] MEDS ORDERED: BENZOCAINE/MENTHOL (CHLORASEPTIC ) LOZENGE MM PRN (21:57)
[2024-12-18] MEDS ORDERED: MAGNESIUM HYDROX 2400MG/30ML ORAL SUSPENSION 30 ML CUP PO PRN (21:57)
[2024-12-18] MEDS ORDERED: IBUPROFEN 600 MG TABLET (FP) PO PRN (21:57)
[2024-12-18] MEDS ORDERED: IBUPROFEN 400 MG TABLET (FP) PO PRN (21:57)
[2024-12-18] MEDS ORDERED: ACETAMINOPHEN 325 MG TABLET (FP) PO PRN (21:57)
[2024-12-18] MEDS ORDERED: P-EPHED 60MG/TRIPROLIDI 2.5MG TABLET PO PRN (21:57)
[2024-12-18] MEDS ORDERED: BISMUTH SUBSALICYLATE 524 MG/30 ML PO PRN (21:57)
[2024-12-18] MEDS ORDERED: NALOXONE (NARCAN) HCL 4 MG/0.1 ML SPRAY NS PRN (21:57)
[2024-12-18] MEDS ORDERED: MELATONIN 5 MG TABLETS ONE (22:36)
[2024-12-18] MEDS: THIAMINE 100 MG TABLET PO SCH (22:50)
[2024-12-18] MEDS: MELATONIN 5 MG TABLETS PO SCH (22:50)
[2024-12-18] MEDS: methaDONE HCL 10 MG TABLET (FOR DETOX USE ONLY) PO ONE (23:25)
[2024-12-19] MEDS: METHOCARBAMOL 500 MG TABLET PO PRN (00:53)
[2024-12-19] MEDS: cloNIDine HCL 0.1 MG TABLET PO PRN (00:53)
[2024-12-19] MEDS: methaDONE HCL 10 MG TABLET (FOR DETOX USE ONLY) PO ONE (09:51)
[2024-12-19] MEDS: BUPRENORPHINE/NALOXONE 0.5 MG/0.125 MG FILM SL SCH (09:52)
[2024-12-19] MEDS: PRENATAL VITAMINS W/ FOLIC ACID TABLET (FP) PO SCH (09:52)
[2024-12-19 10:03] LABS: HEMATOCRIT 39.8 % (40.1-51.0); HEMOGLOBIN 13.2 g/dL (13.7-17.5); MCHC 33.2 g/dl (32.3-36.5); MEAN CELL VOLUME 91.5 fl (79.0-92.2); MEAN PLT VOLUME 9.6 fl (9.4-12.4); PLATELET COUNT 309 x10^3/uL (163-337); RDW 12.8 % (12.2-16.4)
[2024-12-19 10:06] LABS: POTASSIUM 4.1 mmol/L (3.5-5.1)
[2024-12-19 10:08] LABS: ALBUMIN 3.9 g/dl (3.4-5.0); BLOOD UREA NITROGEN 11.1 mg/dL (7-18); CALCIUM 9.8 mg/dL (8.5-10.1)
[2024-12-19 10:11] LABS: CREATININE 0.7 mg/dL (0.55-1.3)
[2024-12-19 10:12] LABS: BILIRUBIN,TOTAL 1.8 mg/dL (0.2-1)
[2024-12-19 10:13] LABS: TOT PROT 7.4 g/dl (6.4-8.2)
[2024-12-20] MEDS: BUPRENORPHINE/NALOXONE 2 MG/0.5 MG FILM PACKET SL SCH (09:42)
[2024-12-21] MEDS: MELATONIN 5 MG TABLETS PO ONE (01:22)
[2024-12-21] MEDS: BUPRENORPHINE/NALOXONE 4 MG/1 MG FILM PACKET SL SCH (09:43)
[2024-12-21] MEDS ORDERED: methaDONE HCL 10 MG TABLET (FOR DETOX USE ONLY) PO ONE (10:00)
[2024-12-21] MEDS: methaDONE HCL 10 MG TABLET (FOR DETOX USE ONLY) PO ONE (10:40)
[2024-12-21] MEDS: diazePAM 5 MG TABLET PO PRN (13:50)
[2024-12-22 09:26] VITALS: BP 148/75; PULSE 102; RESP 20; TEMP 98.2
[2024-12-22] MEDS: BUPRENORPHINE/NALOXONE 8 MG/2 MG FILM PACKET SL SCH (09:35)
== END 2024-12-22 10:09 | disposition home or self-care (01) | DRG 773 ==
LOC: YASAS 20:43 → Y6N 22:21
PROVIDERS: ADMIT Allergy & Immunology; ATTEND Family Medicine Addiction Medicine
PROC: HZ2ZZZZ Detoxification Services for Substance Abuse Treatment (ICD-10-PCS; principal; 2024-12-18)
DX: F11.23 Opioid dependence with withdrawal (principal); G47.00 Insomnia, unspecified; Z87.891 Personal history of nicotine dependence; Z87.19 Personal history of other diseases of the digestive system
CPT/HCPCS: 36415; 80053; 80305; 80307; 85027; 86780; 93005; 93010